=== PATIENT | male | born 1940 | race Caucasian/White ===

== ENCOUNTER → 2016-11-18 | Outpatient (CLI) | payer MEDICARE, BC ==
--- NOTE | 2016-11-18 11:51 | PN ---
DATE OF SERVICE: 11/18/2016 A 76-year-old gentleman who has [facility] for [facility] of obstructive sleep apnea-hypopnea syndrome. Recently patient had sleep studies which showed that patient has obstructive sleep apnea-hypopnea syndrome and then he has had titration which showed that CPAP was effective for the pressure 14 cm of water. Patient received his new CPAP unit. He brought his unit with him for the appointment. I checked the unit usage, he is 30/30 nights for more than 4 hours which showed 100% compliance with treatment. Average usage is 8.8 hours. Average apnea-hypopnea index for last one month 1.7. Patient increased his weight on about 10 pounds since titration in July of 2016. Patient does not have any problem with the machine, sleeps well. No snoring with the machine. Strong Sleepiness Scale today is 9. MEDICATIONS: Losartan, hydrochlorothiazide, allopurinol, stool softeners, Timoptic eye drops. During physical exam, patient in no distress. BP 117/61, HR 70, RR 16. Weight 322. Temp 98.2. Oxygen saturation at room air 94%. Oropharynx low position of soft palate. ABDOMEN: Obese. HEART: S1, S2, irregular slightly systolic murmur on aorta. NECK: Supple. No JVD, Thyroid is not palpable. LUNGS: Clear to percussion and to auscultation. Good air exchange. No wheezing or rhonchi. ASSIGNMENT AGENT: Awake, alert, and oriented x3. Cranial nerves 2 to 7 intact. There is no fasciculation or atrophy noted. No focal deficits observed. IMPRESSION: 1. Obstructive sleep apnea-hypopnea syndrome on control with CPAP at 14 cm of water. Patient demonstrated 100% compliance with treatment benefiting from treatment. 2. Obesity. 3. Hypertension. 4. Gout. 5. Glaucoma. 6. Status post bilateral knee replacement. PLAN: 1. Patient will continue treatment with CPAP every night for the whole night. 2. Losing weight. 3. Sleep hygiene with regular time in bed for at least 8 hours. 4. No driving if feeling any sleepiness. 5. Prescription for all necessary CPAP supplies. 6. Followup visit in one year. Sincerely, Delmar Christianson MD, PhD, FAASM Diplomat of [place] [employer], Sleep Medicine Board by [place] [employer] [place] [employer] Mechanical Maintenance of [facility] [place]
== END | disposition home or self-care (01) ==
LOC: SLEEP 09:48
PROVIDERS: ATTEND Internal Medicine
DX: G47.33 Obstructive sleep apnea (adult) (pediatric) (principal); E66.9 Obesity, unspecified; I10 Essential (primary) hypertension; M10.9 Gout, unspecified; H40.9 Unspecified glaucoma; Z96.653 Presence of artificial knee joint, bilateral; Z79.899 Other long term (current) drug therapy

== ENCOUNTER → 2017-11-07 | Outpatient (CLI) | payer MEDICARE, BC ==
--- NOTE | 2017-11-07 15:46 | XR ---
EXAMINATION TYPE: XR foot complete RT DATE OF EXAM: 11/07/2017 CLINICAL HISTORY: Right foot ulceration and pain. TECHNIQUE: Frontal, lateral, and oblique images of the right foot are obtained. COMPARISON: None FINDINGS: Soft tissue ulceration seen at the plantar aspect of the first digit distally with soft ti ssue swelling of the plantar aspect of the midfoot and forefoot and to a lesser degree of the hindfoo t. No focal ulceration or periosteal reaction is identified. Healing fracture deformity is seen of th e middle phalanx of the second digit, obliquely oriented and extending into the distal interphalangea l joint with some callus formation on the oblique image. Small Achilles and plantar enthesophytes are seen on the oblique and lateral images respectively. No evidence of dislocation is identified. IMPRESSION: 1. Soft tissue ulceration of the plantar aspect of the great toe with no radiographic sequela of oste omyelitis. Soft tissue swelling is seen of the forefoot and midfoot and to a lesser degree of the hin dfoot. 2. Healing fracture deformity of the middle phalanx of the second digit with intra-articular extensio n.
== END | disposition home or self-care (01) ==
LOC: RADXRMAIN 15:00
PROVIDERS: ATTEND Podiatrist Foot Surgery
DX: M79.89 Other specified soft tissue disorders (principal); S92.521D Displaced fracture of middle phalanx of right lesser toe(s), subsequent encounter for fracture with routine healing

== ENCOUNTER 2018-02-21 03:12 | Emergency (ER) | payer MEDICARE ==
--- NOTE | 2018-02-21 03:37 | ED ---
General Adult HPI - General Chief complaint: Shortness of Breath Stated complaint: Possible Heatstroke Time Seen by Provider: 02/21/18 03:15 Source: patient, RN notes reviewed Mode of arrival: wheelchair Limitations: no limitations - History of Present Illness Initial comments: This is a 77-year-old male who is morbidly obese and has a history of high blood pressure. Patient presents today because since this morning he has been short of breath and sweating. Patient denies any chest pain or palpitation. Patient denies any fever. Patient states he has been coughing quite a bit lately however. Patient denies abdominal pain patient denies nausea vomiting or diarrhea. Patient denies any lightheadedness or dizziness. Patient does complain of generalized weakness but no focal weakness or deficit. Patient denies any headache. - Related Data Home Medications Medication Instructions Recorded Confirmed Allopurinol 100 mg PO BID 03/15/14 01/19/16 Docusate Sodium [Stool Softener] 100 mg PO BID 03/15/14 01/19/16 Losartan/Hydrochlorothiazide 1 tab PO QAM 03/15/14 01/19/16 [Losartan-Hctz 100-25 mg Tab] [place]-3 Acid Ethyl Esters [Lovaza] 1 gm PO DAILY 03/15/14 01/19/16 Timolol 0.5% Ophth Soln [Timoptic 1 drop BOTH EYES HS 03/15/14 01/19/16 0.5% Ophth Soln] diphenhydrAMINE [Benadryl] 25 mg PO DAILY PRN 08/28/15 01/19/16 Cholecalciferol [Vitamin D3] 2,000 unit PO DAILY 01/13/16 01/19/16 Ezetimibe [Zetia] 10 mg PO HS 01/13/16 01/19/16 Previous Rx's Medication Instructions Recorded Aspirin 325 mg PO BID #60 tab 01/21/16 Celecoxib [CeleBREX] 200 mg PO BID #30 capsule 01/21/16 Docusate [Colace] 100 mg PO DAILY #30 capsule 01/21/16 Famotidine [Pepcid] 20 mg PO DAILY #30 tablet 01/21/16 traMADol HCl [Ultram] 50 mg PO Q6H PRN #60 tab 01/21/16 Allergies Allergy/AdvReac Type Severity Reaction Status Date / Time ciprofloxacin [From Cipro] Allergy Unknown Verified 02/21/18 03:18 ciprofloxacin HCl Allergy Unknown Verified 02/21/18 03:18 [From Cipro] Tetanus Vaccines and Toxoid Allergy Swelling Verified 02/21/18 03:18 [Tetanus Vaccines & Toxoid] warfarin sodium Allergy Swelling Verified 02/21/18 03:18 [From Coumadin] Review of Systems ROS Statement: Those systems with pertinent positive or pertinent negative responses have been documented in the HPI. ROS Other: All systems not noted in ROS Statement are negative. Past Medical History Past Medical History: Asthma, Cancer, Eye Disorder, Hyperlipidemia, Hypertension , Sleep Apnea/CPAP/BIPAP Additional Past Medical History / Comment(s): TINNITUS,GLAUCOMA, HX PROSTATE CA 1996 & 2012 RADIATION [place],USES BIPAP, BLOOD CLOT LT KNEE AFTER HIP SURGERY, GULLIAN BARRE SYNDROME 1996, gout-NONE RECENTLLY History of Any Multi-Drug Resistant Organisms: None Reported Past Surgical History: Adenoidectomy, Back Surgery, Hernia Repair, Joint Replacement, Prostate Surgery, Tonsillectomy Additional Past Surgical History / Comment(s): LEFT HIP REPLACEMENT, BACK FUSION , PROSTATE, RECTAL FISTULA REPAIR X 2,UMBILICAL HERNIA REPAIR,LT KNEE SCOPE, 09-08 TOTAL LT KNEE REPLACEMENT, 01-19-16 TOTAL RT KNEE Past Anesthesia/Blood Transfusion Reactions: No Reported Reaction, Motion Sickness Additional Past Anesthesia/Blood Transfusion Reaction / Comment(s): Anabaptist, CLAUSTERPHOBIA, MOTION SICKESS IF LAYING FLAT ESPECIALLY IF RIDING IN AN AMBULANCE Past Psychological History: No Psychological Hx Reported Smoking Status: Former smoker Past Alcohol Use History: Occasional Past Drug Use History: None Reported - Past Family History Mother Family Medical History: Cancer (Mother at the age of 82 from pleural cancer ?Mesothelioma.) Father Family Medical History: Cancer (Father at the age of 83 from CVA,CA and had a PPM and history of prostate cancer), CVA/TIA, Myocardial Infarction (CA) Additional Family Medical History / Comment(s): HEART PROBLEMS-PACEMAKER Brother(s) Family Medical History: Coronary Artery Disease (CAD) (Patient has one brother with CAD .) Additional Family Medical History / Comment(s): HEART PROBLEMS Sister(s) Family Medical History: Cancer (patient has 2 sisters one with throat cancer and the other one with ovarian cancer.) Son(s) Family Medical History: Coronary Artery Disease (CAD) (Patient has 2 sons one of them with CAD.) General Exam - General Exam Comments Initial Comments: GENERAL: Patient is well-developed and well-nourished. Patient is nontoxic and well- hydrated and is in mild distress. ENT: Neck is soft and supple. No significant lymphadenopathy is noted. Oropharynx is clear. Moist mucous membranes. Neck has full range of motion without eliciting any pain. EYES: The sclera were anicteric and conjunctiva were pink and moist. Extraocular movements were intact and pupils were equal round and reactive to light. Eyelids were unremarkable. PULMONARY: Unlabored respirations. Good breath sounds bilaterally. No audible rales rhonchi or wheezing was noted. CARDIOVASCULAR: There is a regular rate and rhythm without any murmurs gallops or rubs. ABDOMEN: Soft and nontender with normal bowel sounds. No palpable organomegaly was noted. There is no palpable pulsatile mass. SKIN: Skin is clear with no lesions or rashes and otherwise unremarkable. NEUROLOGIC: Patient is alert and oriented x3. Cranial nerves II through XII are grossly intact. Motor and sensory are also intact. Normal speech, volume and content. Symmetrical smile. MUSCULOSKELETAL: Normal extremities with adequate strength and full range of motion. LYMPHATICS: No significant lymphadenopathy is noted PSYCHIATRIC: Normal psychiatric evaluation. Limitations: no limitations Course Vital Signs 02/21/18 02/21/18 03:15 05:38 Temperature 96.9 F L 97.1 F L Pulse Rate 74 68 Respiratory 19 18 Rate Blood Pressure 154/82 134/64 O2 Sat by Pulse 95 97 Oximetry Medical Decision Making - Medical Decision Making EKG shows normal sinus rhythm at 73 bpm NE interval is 188 QRS is 98 QT interval 440 QTC is 484. Patient's EKG shows some T-wave inversions in leads V3 and V4. Computed tomography scan showed bilateral pulmonary embolisms with some right heart strain. I started the patient on high-dose heparin. Spoke with Dr. Livingston he agreed to admit the patient admitted the patient I consult the pulmonary. - Lab Data Result diagrams: 02/21/18 04:15 02/21/18 04:15 Lab Results 02/21/18 02/21/18 02/21/18 Range/Units 04:15 04:15 04:15 WBC 8.2 (3.8-10.6) k/uL RBC 4.87 (4.30-5.90) m/uL Hgb 15.1 (13.0-17.5) gm/dL Hct 46.3 (39.0-53.0) % MCV 95.0 (80.0-100.0) fL MCH 31.1 (25.0-35.0) pg MCHC 32.7 (31.0-37.0) g/dL RDW 13.3 (11.5-15.5) % Plt Count 210 (150-450) k/uL Neutrophils % 81 % Lymphocytes % 11 % Monocytes % 5 % Eosinophils % 1 % Basophils % 0 % Neutrophils # 6.7 (1.3-7.7) k/uL Lymphocytes # 0.9 L (1.0-4.8) k/uL Monocytes # 0.4 (0-1.0) k/uL Eosinophils # 0.1 (0-0.7) k/uL Basophils # 0.0 (0-0.2) k/uL PT (9.0-12.0) sec INR (<1.2) APTT (22.0-30.0) sec D-Dimer (<0.60) mg/L FEU Sodium 142 (137-145) mmol/L Potassium 4.5 (3.5-5.1) mmol/L Chloride 108 H (98-107) mmol/L Carbon Dioxide 24 (22-30) mmol/L Anion Gap 10 mmol/L BUN 30 H (9-20) mg/dL Creatinine 1.40 H (0.66-1.25) mg/dL Est GFR (CKD-EPI)AfAm 57 (>60 ml/min/1.73 sqM) Est GFR (CKD-EPI)NonAf 49 (>60 ml/min/1.73 sqM) Glucose 140 H (74-99) mg/dL Calcium 9.6 (8.4-10.2) mg/dL Magnesium 1.8 (1.6-2.3) mg/dL Total Bilirubin 0.7 (0.2-1.3) mg/dL AST 29 (17-59) U/L ALT 30 (21-72) U/L Alkaline Phosphatase 37 L (38-126) U/L Total Creatine Kinase 91 (55-170) U/L CK-MB (CK-2) 3.6 H* (0.0-2.4) ng/mL CK-MB (CK-2) Rel Index 4.0 Troponin I 0.279 H* (0.000-0.034) ng/mL NT-Pro-B Natriuret Pep pg/mL Total Protein 6.4 (6.3-8.2) g/dL Albumin 3.9 (3.5-5.0) g/dL 02/21/18 02/21/18 Range/Units 04:15 04:15 WBC (3.8-10.6) k/uL RBC (4.30-5.90) m/uL Hgb (13.0-17.5) gm/dL Hct (39.0-53.0) % MCV (80.0-100.0) fL MCH (25.0-35.0) pg MCHC (31.0-37.0) g/dL RDW (11.5-15.5) % Plt Count (150-450) k/uL Neutrophils % % Lymphocytes % % Monocytes % % Eosinophils % % Basophils % % Neutrophils # (1.3-7.7) k/uL Lymphocytes # (1.0-4.8) k/uL Monocytes # (0-1.0) k/uL Eosinophils # (0-0.7) k/uL Basophils # (0-0.2) k/uL PT 11.0 (9.0-12.0) sec INR 1.1 (<1.2) APTT 22.4 (22.0-30.0) sec D-Dimer 4.38 H (<0.60) mg/L FEU Sodium (137-145) mmol/L Potassium (3.5-5.1) mmol/L Chloride (98-107) mmol/L Carbon Dioxide (22-30) mmol/L Anion Gap mmol/L BUN (9-20) mg/dL Creatinine (0.66-1.25) mg/dL Est GFR (CKD-EPI)AfAm (>60 ml/min/1.73 sqM) Est GFR (CKD-EPI)NonAf (>60 ml/min/1.73 sqM) Glucose (74-99) mg/dL Calcium (8.4-10.2) mg/dL Magnesium (1.6-2.3) mg/dL Total Bilirubin (0.2-1.3) mg/dL AST (17-59) U/L ALT (21-72) U/L Alkaline Phosphatase (38-126) U/L Total Creatine Kinase (55-170) U/L CK-MB (CK-2) (0.0-2.4) ng/mL CK-MB (CK-2) Rel Index Troponin I (0.000-0.034) ng/mL NT-Pro-B Natriuret Pep 3120 pg/mL Total Protein (6.3-8.2) g/dL Albumin (3.5-5.0) g/dL Disposition Clinical Impression: Pulmonary embolism Disposition: ADMITTED IP TO THIS HOSP Referrals: Codey Simons DO [Primary Care Provider] - 1-2 days Time of Disposition: 06:02
[2018-02-21 04:29] LABS: Basophils % (A) 0 %; Eosinophils # (A) 0.1 k/uL (0-0.7); Eosinophils % (A) 1 %; HCT 46.3 % (39.0-53.0); HGB 15.1 gm/dL (13.0-17.5); Lymphocytes # (A) 0.9 k/uL (1.0-4.8); Lymphocytes % (A) 11 %; MCH 31.1 pg (25.0-35.0); MCHC 32.7 g/dL (31.0-37.0); Mean Platelet Volume 7.1; Monocytes # (A) 0.4 k/uL (0-1.0); Monocytes % (A) 5 %; Neutrophils # (A) 6.7 k/uL (1.3-7.7); Neutrophils % (A) 81 %; Platelet Count 210 k/uL (150-450); RBC 4.87 m/uL (4.30-5.90); RDW 13.3 % (11.5-15.5); WBC 8.2 k/uL (3.8-10.6)
--- NOTE | 2018-02-21 04:38 | XR ---
EXAM: XR Chest, 2 Views CLINICAL HISTORY: difficulty breathing TECHNIQUE: Frontal and lateral views of the chest. COMPARISON: 04/05/2016 FINDINGS: Lungs: Minimal linear changes at the left base are presumed subsegmental atelectasis or scarring. The pulmonary vasculature is felt to be within normal limits. Pleural space: No pleural effusion. No pneumothorax. Heart: Unremarkable. No cardiomegaly. Mediastinum: Unremarkable. Bones/joints: Stable degenerative changes of the thoracic spine. Vasculature: There is calcification and unfolding of the thoracic aorta, stable. IMPRESSION: Presumed linear left basilar atelectasis or scarring. No segmental airspace disease or acute cardiopulmonary process identified.
[2018-02-21 04:50] LABS: Albumin 3.9 g/dL (3.5-5.0); Calcium 9.6 mg/dL (8.4-10.2); INR 1.1 (<1.2); Magnesium 1.8 mg/dL (1.6-2.3); Partial Thromboplastin Time 22.4 sec (22.0-30.0); Potassium 4.5 mmol/L (3.5-5.1); Total Bilirubin 0.7 mg/dL (0.2-1.3); Total Protein 6.4 g/dL (6.3-8.2)
[2018-02-21 04:55] LABS: D-Dimer 4.38 mg/L FEU (<0.60)
[2018-02-21 05:18] LABS: Creatine Kinase MB 3.6 ng/mL (0.0-2.4); Troponin I 0.279 ng/mL (0.000-0.034)
[2018-02-21 05:39] VITALS: RESP 18; TEMP 97.1
--- NOTE | 2018-02-21 05:50 | CT ---
EXAM: CT Angiography Chest With Intravenous Contrast CLINICAL HISTORY: Pain TECHNIQUE: Axial computed tomographic angiography images of the chest with intravenous contrast using pulmonary embolism protocol. CTDI is 35.55 mGy and DLP is 1492 mGy-cm. This CT exam was performed using one or more of the following dose reduction techniques: automated exposure control, adjustment of the mA and/or kV according to patient size, and/or use of iterative reconstruction technique. MIP reconstructed images were created and reviewed. COMPARISON: 06/04/2016 FINDINGS: Pulmonary arteries: There are filling defects noted in the distal main right and left pulmonary arteries with extension to involve the proximal subsegmental branches. There is complete filling defect involving the right proximal posterior basal segments there is filling defect in the proximal right upper lobe. Filling defects are noted involving the proximal left upper lobe and left posterior basal segments. Aorta: No acute findings. No thoracic aortic aneurysm. Lungs: Minimal linear and curvilinear changes are noted at the lung bases, somewhat improved from previous exam. Minimal subsegmental changes noted involving the lingular segments. Pleural space: Unremarkable. No significant effusion. No pneumothorax. Heart: The right ventricle is enlarged with the base of the right ventricle measuring 7 cm in the base of the left ventricle measuring 4.8 cm. Bones/joints: No acute fracture. No dislocation. Soft tissues: Intramuscular lipoma noted along the deep lateral margin of the scapula, stable.. Lymph nodes: Unremarkable. No enlarged lymph nodes. Liver: Minimal reflux of contrast into the intrahepatic IVC is noted suggesting right heart dysfunction. IMPRESSION: Findings consistent with bilateral pulmonary embolism affecting all major segments. Dilatation of the right ventricle in relation to the left suggests right heart dysfunction. Please correlate clinically. Critical Value Communications 02/21/18 05:57 Call Doctor Regarding Pulmonary Embolism, called Dr. Lomax on 02/21 05:54 (-04:00)
[2018-02-21] MEDS ORDERED: HEPARIN SODIUM,PORCINE 10,000 UNIT/ML 1 ML VIAL IV ONE (05:57)
[2018-02-21] MEDS ORDERED: HEPARIN SOD,PORK IN 0.45% NACL 25,000 UNIT in 0.45% NACL 1 500ML.BAG IV SCH (06:00)
[2018-02-21] MEDS ORDERED: SODIUM CHLORIDE 0.9% 1,000 ML IV ONE (06:02)
[2018-02-21 06:44] VITALS: BP 135/75; PULSE 72
== END 2018-02-21 07:10 | disposition other institution (70) ==
LOC: EC 03:12 → UNDOADMIN 06:02 → 6SEL 06:02 → EC 07:10
DX: I26.99 Other pulmonary embolism without acute cor pulmonale (principal); E78.5 Hyperlipidemia, unspecified; I10 Essential (primary) hypertension; M10.9 Gout, unspecified; G47.30 Sleep apnea, unspecified; Z99.89 Dependence on other enabling machines and devices; Z87.891 Personal history of nicotine dependence; Z85.46 Personal history of malignant neoplasm of prostate; Z96.642 Presence of left artificial hip joint; Z96.652 Presence of left artificial knee joint; Z98.1 Arthrodesis status; Z98.890 Other specified postprocedural states; Z79.899 Other long term (current) drug therapy; Z88.1 Allergy status to other antibiotic agents; Z88.8 Allergy status to other drugs, medicaments and biological substances; Z88.7 Allergy status to serum and vaccine
CPT/HCPCS: 36415; 93005; 85379; 83880; 80053; 82550; 82553; 83735; 84484; 85025; 85610; 85730; 87040; 71046; 71275; 99285; 96365; 96376; J1644 ×2; Q9967

== ENCOUNTER 2018-05-03 07:04 | Day surgery (SDC) | payer MEDICARE ==
[2018-04-27 13:16] VITALS: BMI 43.7
[~2018-05-03 07:04] MED LIST: HYDROmorphone 0.5 MG/0.5 ML SYRINGE IVP PRN; LACTATED RINGERS 1,000 ML IV SCH; LIDOCAINE 1% 20 ML VIAL (10MG/ML) FOR IV START INTRADERMA PRN; Pre Op ABX Message 1 EACH MISC MISCELLANE ONE; TETRACAINE 0.5% OPHTH (PF) DROPS 4 ML BTL OP ONE; TIMOLOL 0.5% OPHTH DROPS 5 ML BTL OP ONE
[2018-05-03 07:40] VITALS: TEMP 97.6
[2018-05-03] MEDS: CYCLOPENTOLATE 1% OPHTH SOLN 2 ML BTL OP ONE ×3 (07:47→08:09)
[2018-05-03] MEDS: PHENYLEPHRINE 2.5% OPHTH DRP 2ML OP NR ×3 (07:55→08:12)
[2018-05-03] MEDS ORDERED: MIDAZOLAM 2 MG/2 ML VIAL ONE (08:43)
[2018-05-03] MEDS ORDERED: fentaNYL (PF) 50 MCG/ML 2 ML AMP ONE (08:43)
[2018-05-03] MEDS ORDERED: BALANCED SALT IRRIG SOLN COMB2 15 ML IRRIG.SOLN IRRIGATION ONE (08:48)
[2018-05-03] MEDS ORDERED: LIDOCAINE 1% (PF) 10MG/ML VIAL SQ ONE (08:49)
[2018-05-03] MEDS ORDERED: DUOVISC KIT (GREEN BOX) INTRAOCULA ONE (08:49)
[2018-05-03] MEDS ORDERED: EPINEPHrine (PF) 0.3 ML in BALANCED SALT IRRIG SOLN COMB2 500 ML IRRIGATION ONE (08:49)
[2018-05-03] MEDS ORDERED: CHONDROITIN-SOD HYALURONATE 1 EACH SYRINGE (0.75 ML) INTRAOCULA ONE (09:02)
--- NOTE | 2018-05-03 09:20 | P.OP ---
Date of Procedure: 05/03/18 Preoperative Diagnosis: NS CS & POAG moderate Postoperative Diagnosis: same Procedure(s) Performed: PIOL & iSTent Implants: PCB00 20.00 & iStent [id number] Anesthesia: MAC Surgeon: Danny Jacobson Estimated Blood Loss (ml): 2 Pathology: none sent Condition: stable Disposition: same day Indications for Procedure: blurry vision & POAG Operative Findings: No complications
[2018-05-03 10:01] VITALS: BP 129/79; PULSE 65; RESP 18
--- NOTE | 2018-05-03 18:48 | OP ---
OPERATIVE REPORT DATE OF SURGERY: May 03, 2018. PROCEDURE PERFORMED: Phacoemulsification of cataract and intraocular lens implant of the right eye with an eye stent implantation, right eye. 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 SURGEON: Dr. Danny Jacobson. ANESTHESIA: Topical. ESTIMATED BLOOD LOSS: Less than 5 mL. SPECIMEN: Taken none. NARRATIVE: After obtaining the appropriate consent, the patient was placed on cardiac monitoring prepped and draped in the usual sterile manner. He was approached from his right temporal side and at the 11 o'clock position an MVR blade was used to create a paracentesis port through this opening 1% Xylocaine MPF 50 50 mix of balanced salt solution was injected into the anterior chamber. This was followed by stabilization of the anterior chamber with Viscoat. Additionally, a small amount of that viscoelastic was placed on the patient's cornea. At the 9 o'clock position, a 2.5 mm keratome was used to create a self-sealing corneal flap incision in a Langerman's fashion. The patient was then asked to rotate his head to the left approximately 45 degrees and maintain his gaze in that general direction and a gonio prism was placed on the patient's eye. Once the trabecular meshwork was identified, a Glaukos eye stent model DTS 100 mL was passed across the anterior chamber of the eye and with implantation of the stenting device in the nasal trabecular meshwork. A small amount of blood was identified at the time of placement as expected. The patient was then returned to the normal supine position and a cystotome was introduced to begin a continuous tear capsulorrhexis which was completed using the Utrata forceps. Hydrodissection and hydrodelineation of the lens was accomplished with balanced salt solution. Phacoemulsification of the lens utilizing phaco chop was accomplished in 14.16 seconds at 12% power. Additional Xylocaine MPF was instilled into the anterior chamber. This was followed by removal of the remaining cortex under irrigation aspiration as well as careful polishing of the posterior capsule in capsule vacuum mode. Provisc was then used to stabilize the capsular bag and an DEJUAN PCB 20 diopter posterior chamber intraocular lens was then implanted into the capsular bag without difficulty. The remaining viscoelastic was then removed from in and around the intra-ocular lens as well as the anterior chamber. The eye was brought to normal intraocular pressure through the paracentesis port with confirmation of a watertight integrity. He then received 2 drops of 0.5% timolol followed by 2 drops of moxifloxacin, was then lightly patched and shielded in the usual manner. There were no complications of the procedure. He tolerated the procedure well, was returned to outpatient recovery in good condition. MMODL / IJN: [id number] /
== END 2018-05-03 10:00 | disposition home or self-care (01) ==
LOC: OR 07:04
PROVIDERS: ATTEND Ophthalmology
DX: H25.093 Other age-related incipient cataract, bilateral (principal); H40.1132 Primary open-angle glaucoma, bilateral, moderate stage; H25.012 Cortical age-related cataract, left eye; H25.12 Age-related nuclear cataract, left eye; H21.89 Other specified disorders of iris and ciliary body; H47.093 Other disorders of optic nerve, not elsewhere classified, bilateral; H43.313 Vitreous membranes and strands, bilateral; H52.13 Myopia, bilateral; H52.4 Presbyopia; H10.45 Other chronic allergic conjunctivitis; H00.019 Hordeolum externum unspecified eye, unspecified eyelid; I10 Essential (primary) hypertension; M10.9 Gout, unspecified; Z86.711 Personal history of pulmonary embolism; M19.90 Unspecified osteoarthritis, unspecified site; G47.30 Sleep apnea, unspecified; Z87.891 Personal history of nicotine dependence; Z88.1 Allergy status to other antibiotic agents; Z88.8 Allergy status to other drugs, medicaments and biological substances; Z91.048 Other nonmedicinal substance allergy status; Z79.01 Long term (current) use of anticoagulants; Z79.82 Long term (current) use of aspirin; Z79.899 Other long term (current) drug therapy
CPT/HCPCS: 66984; 66183; C1780; C1783; J2250; J0171; J3010; J2001

== ENCOUNTER 2018-05-17 07:02 | Day surgery (SDC) | payer MEDICARE ==
[2018-05-12 11:23] VITALS: BMI 43.7
[~2018-05-17 07:02] MED LIST changes: -HYDROmorphone 0.5 MG/0.5 ML SYRINGE IVP PRN; -LIDOCAINE 1% 20 ML VIAL (10MG/ML) FOR IV START INTRADERMA PRN
[2018-05-17] MEDS: CYCLOPENTOLATE 1% OPHTH SOLN 2 ML BTL OP ONE ×3 (08:07→08:24)
[2018-05-17 08:09] VITALS: TEMP 97
[2018-05-17] MEDS: PHENYLEPHRINE 2.5% OPHTH DRP 2ML OP NR ×3 (08:10→08:28)
[2018-05-17] MEDS ORDERED: LIDOCAINE 1% 20 ML VIAL (10MG/ML) FOR IV START INTRADERMA ONE (08:14)
[2018-05-17] MEDS ORDERED: LIDOCAINE 1% (PF) 10MG/ML VIAL SQ ONE (09:13)
[2018-05-17] MEDS ORDERED: DUOVISC KIT (GREEN BOX) INTRAOCULA ONE (09:13)
[2018-05-17] MEDS ORDERED: BALANCED SALT IRRIG SOLN COMB2 15 ML IRRIG.SOLN IRRIGATION ONE (09:13)
[2018-05-17] MEDS ORDERED: MIDAZOLAM 2 MG/2 ML VIAL ONE (09:14)
[2018-05-17] MEDS ORDERED: EPINEPHrine (PF) 0.3 ML in BALANCED SALT IRRIG SOLN COMB2 500 ML IRRIGATION ONE (09:25)
--- NOTE | 2018-05-17 09:40 | P.OP ---
Date of Procedure: 05/17/18 Preoperative Diagnosis: NS & CS & POAG moderate Postoperative Diagnosis: same Procedure(s) Performed: PIOL & iStent left eye Implants: PCB00 19.50 & GTS 100L Anesthesia: MAC Surgeon: Danny Jacobson Estimated Blood Loss (ml): 0 Pathology: none sent Condition: stable Disposition: same day Indications for Procedure: blurry vision & glaucoma Operative Findings: No complications
[2018-05-17 10:16] VITALS: BP 115/77; PULSE 61; RESP 18
--- NOTE | 2018-05-17 20:37 | OP ---
OPERATIVE REPORT DATE OF SURGERY: 05/17/2018 PROCEDURE: Phacoemulsification of cataract and intraocular lens implant of the left eye with an eye stent implantation of the left eye. PREOPERATIVE DIAGNOSIS: Nuclear sclerosis, cortical sclerosis and primary open-angle glaucoma, moderate stage. POSTOPERATIVE DIAGNOSIS: Nuclear sclerosis, cortical sclerosis and primary open-angle glaucoma, moderate stage. SURGEON: Dr. Danny Jacobson. ANESTHESIA: Topical. ESTIMATED BLOOD LOSS: None. SPECIMEN TAKEN: None. NARRATIVE: After obtaining the appropriate consent, the patient was brought to the operating room. There he was placed under cardiac monitoring, prepped and draped in the usual sterile manner. He was approached from his left temporal side, and at the 5 o'clock position an MVR blade was used to create a paracentesis port. Through this opening 1% Xylocaine MPF 50:50 mix of balanced salt solution was injected into the anterior chamber. This was followed by stabilization of the anterior chamber with Viscoat. At the 3 o'clock position a 2.5 mm keratome was used to create a self-sealing corneal flap incision in a Langerman's fashion. The patient was then asked to rotate his head approximately 45 degrees to his right and maintain his gaze in that general direction. A gonioprism was placed on the patient's cornea and the trabecular meshwork was easily identified. A GlaNifty After Fifty model GTS 100L iStent device was passed across the anterior chamber and placed within the trabecular meshwork without difficulty. He was then rotated back to the normal supine position and a cystotome was used to begin a continuous tear capsulorrhexis, which was completed using the Utrata forceps. Hydrodissection and hydrodelineation of the lens was accomplished with balanced salt solution. Phacoemulsification of the lens utilizing phaco chop was accomplished in 14.84 seconds at 14% power. Additional Xylocaine MPF was instilled into the anterior chamber. This was followed by removal of the remaining cortex under irrigation and aspiration along with careful polishing of the posterior capsule in the capsule vacuum mode. Provisc was then used to stabilize the capsular bag and an DEJUAN PCP 00 19.5 diopter posterior chamber intraocular lens was then inserted into the capsular bag without difficulty. The remaining viscoelastic was then removed from in and around the intraocular lens as well as the anterior chamber. The eye was then brought to normal intraocular pressure through the paracentesis port and the incisions were confirmed watertight. He then received 2 drops of 0.5% timolol followed by 2 drops of moxifloxacin, was then lightly patched and shielded in the usual manner. There were no complications from the procedure. He tolerated the procedure well and was returned to Outpatient Recovery in good condition. PATRICIA / LINWOOD: [id number] /
== END 2018-05-17 10:28 | disposition home or self-care (01) ==
LOC: OR 07:02
PROVIDERS: ATTEND Ophthalmology
DX: H25.12 Age-related nuclear cataract, left eye (principal); H21.89 Other specified disorders of iris and ciliary body; H40.1132 Primary open-angle glaucoma, bilateral, moderate stage; H47.093 Other disorders of optic nerve, not elsewhere classified, bilateral; H43.813 Vitreous degeneration, bilateral; H52.13 Myopia, bilateral; H00.019 Hordeolum externum unspecified eye, unspecified eyelid; H52.4 Presbyopia; H10.45 Other chronic allergic conjunctivitis; Z96.1 Presence of intraocular lens; Z88.1 Allergy status to other antibiotic agents; Z88.7 Allergy status to serum and vaccine; Z88.8 Allergy status to other drugs, medicaments and biological substances; Z79.01 Long term (current) use of anticoagulants; Z79.82 Long term (current) use of aspirin; Z79.899 Other long term (current) drug therapy; I11.9 Hypertensive heart disease without heart failure; Z87.891 Personal history of nicotine dependence; Z86.711 Personal history of pulmonary embolism; Z90.79 Acquired absence of other genital organ(s); G47.30 Sleep apnea, unspecified; Z99.89 Dependence on other enabling machines and devices; E07.9 Disorder of thyroid, unspecified; M10.9 Gout, unspecified
CPT/HCPCS: 66984; 66183; C1780; C1783; J2250; J0171; J2001

== ENCOUNTER → 2018-06-14 | Outpatient (CLI) | payer MEDICARE, OTHER ==
--- NOTE | 2018-06-14 09:03 | XR ---
EXAMINATION TYPE: XR chest 2V DATE OF EXAM: 06/14/2018 COMPARISON: 02/21/2018 HISTORY: Shortness of breath TECHNIQUE: Frontal and lateral views of the chest are obtained. FINDINGS: Scattered senescent parenchymal changes noted. Hyperinflation compatible with COPD. No evidence for infiltrate. No evidence for atelectasis. Heart size is stable. Mediastinal structures are stable and grossly unremarkable. No evidence for hilar prominence. Degenerative changes dorsal spine. IMPRESSION: 1. No evidence for acute pulmonary disease.
== END | disposition home or self-care (01) ==
LOC: RADXRMAIN 08:45
PROVIDERS: ATTEND Family Medicine
DX: J20.8 Acute bronchitis due to other specified organisms (principal)
CPT/HCPCS: 71046

== ENCOUNTER → 2020-02-06 | Outpatient (CLI) | payer MEDICARE, OTHER | END | disposition home or self-care (01) | LOC: LABPAT 12:46 | PROVIDERS: ATTEND Orthopaedic Surgery | DX: Z01.812 Encounter for preprocedural laboratory examination (principal) | CPT/HCPCS: 87070 ==

== ENCOUNTER 2020-02-11 09:39 | Day surgery (SDC) | payer MEDICARE, OTHER ==
[2020-02-05 14:57] VITALS: BMI 45.1
--- NOTE | 2020-02-10 09:25 | HP ---
HISTORY AND PHYSICAL Surgery is 02/11/2020 Paras Ren is a 79-year-old patient seen with symptomatic right hip osteoarthritis. We discussed options for treatment. He elected to proceed with right total hip arthroplasty. Consent regarding the procedure was obtained. Medical clearance was provided by Dr. Codey Simons. PAST MEDICAL HISTORY: Hypertension, gout, hypothyroidism, history of pulmonary embolism. PAST SURGICAL HISTORY: Left total hip arthroplasty, herniorrhaphy. MEDICATIONS: Losartan/hydrochlorothiazide, allopurinol, aspirin, levothyroxine, Xarelto. ALLERGIES: COUMADIN, TETANUS, AND CIPRO. SOCIAL HISTORY: Denies current tobacco use. PHYSICAL EXAMINATION: Evaluation of the right hip. He has very limited range of motion with severe pain. Impingement sign is positive. Distal neurovascular exam is intact. There is diffuse tenderness about the hip girdle. RADIOGRAPHS: Radiographs of the right hip reveal severe osteoarthritic changes. IMPRESSION: 1. Right hip osteoarthritis. 2. Hypertension. 3. Hyperlipidemia. 4. Hypothyroidism. PLAN: Direct anterior right total hip arthroplasty. MMODL / IJN: [id number] /
[~2020-02-11 09:39] MED LIST changes: +ACETAMINOPHEN TAB 500 MG TAB ONE; +ACETAMINOPHEN TAB 500 MG TAB PO ONE; +DEXAMETHASONE SOD PHOSPHATE 10 MG/ML 1 ML VIAL IV ONE; +GLYCOPYRROLATE 0.2 MG/ML 2 ML VIAL ONE; +HYDROcodone/APAP 5-325MG 1 EACH TAB PO PRN; +HYDROmorphone (PF) 1 MG/ML ONE; +HYDROmorphone 0.5 MG/0.5 ML SYRINGE IVP PRN; +LACTATED RINGERS 1,000 ML IV ONE; +LIDOCAINE 1% INJ 10MG/ML (20 ML MDV) ONE; +MELOXICAM 7.5 MG TAB PO ONE; +MIDAZOLAM 2 MG/2 ML VIAL ONE; +NALOXONE 0.4 MG/ML 1 ML VIAL IV PRN; +NEOSTIGMINE 1 MG/ML 10 ML VIAL ONE; +ONDANSETRON 4 MG/2 ML VIAL IVP ONE; +ONDANSETRON 4 MG/2 ML VIAL IVP PRN; +ONDANSETRON 4 MG/2 ML VIAL ONE; +PHENYLEPHRINE-0.9% NACL SYG 1 MG/10 ML SYRINGE ONE; +PROPOFOL 10 MG/ML 20 ML VIAL IV ONE; -Pre Op ABX Message 1 EACH MISC MISCELLANE ONE; +ROCURONIUM 10 MG/ML (5 ML VIAL) IV ONE; +ROPIVACAINE 246.25 MG, EPINEPHrine 0.5 MG, KETOROLAC 30 MG, cloNIDine HCL/PF 80 MCG, WA... MISCELLANE ONE; +SODIUM CHLORIDE 0.9% 100 ML BAG ONE; -TETRACAINE 0.5% OPHTH (PF) DROPS 4 ML BTL OP ONE; -TIMOLOL 0.5% OPHTH DROPS 5 ML BTL OP ONE; +TRANEXAMIC ACID 1,000 MG in SODIUM CHLORIDE 0.9% 100 ML IVPB ONE; +TRANEXAMIC ACID 1,000 MG/10 ML VIAL ONE; +ceFAZolin 3 GM in SODIUM CHLORIDE 0.9% 100 ML IVPB ONE; +fentaNYL (PF) 50 MCG/ML 2 ML AMP ONE; +traMADol 50 MG TAB PO PRN
--- NOTE | 2020-02-11 09:39 | P.OP ---
Date of Procedure: 02/11/20 Preoperative Diagnosis: Right hip osteoarthritis Postoperative Diagnosis: Right hip osteoarthritis Procedure(s) Performed: Direct anterior right total hip arthroplasty Implants: 1. Depuy Corail KA standard collar size 12 press-fit femoral stem 2. Depuy pinnacle 60 mm multi hole press-fit acetabular shell 3. Depuy pinnacle polyethylene acetabular liner neutral 36 mm ID 60 mm OD 4. Biolox delta ceramic femoral head +1.5 36 mm Anesthesia: ROMAA, local Surgeon: Abdulaziz Jeffrey Rail Tractor Operator #1: Ralph Abernathy Estimated Blood Loss (ml): 250 Pathology: other (Femoral head) Condition: stable Disposition: PACU Indications for Procedure: 79-year-old patient seen with symptomatic right hip osteoarthritis. After having treatment options discussed, he elected to proceed with total hip arthroplasty. Operative Findings: See description of procedure Description of Procedure: The patient was taken to the operative suite. Patient underwent a general anesthetic by the department of anesthesia. Patient was then transferred to the [place] table. Patient was given preoperative IV antibiotics and TXA. Both lower extremities were placed in standard leg spars. The hip was then prepped and draped in the normal sterile orthopedic fashion. A standard anterior incision was made beginning 3 cm lateral and 1 cm distal to the ASIS extending 10 cm. Dissection was then carried down through the subcutaneous soft tissues down to the fascia overlying the tensor fascia ric. An incision was now made through the fascia. Careful dissection was taken down exposing the tensor fascia ric muscle. A Cobra retractor was now placed along the medial femoral neck and a second one along the lateral femoral neck. The venous circumflex vessels were now identified, cauterized and clipped. We identified the anterior hip capsule. An incision was made through the hip capsule along the lateral border. I performed a partial anterior capsulectomy. Retractors were now placed around the femoral neck itself. A femoral neck cut was now made with a sagittal saw. It was completed with an osteotome at the lateral neck area. The femoral head was now removed without difficulty. The extremity was now rotated to 45 of external rotation. It was locked in position. Residual labrum was now debrided out. Serial reaming was performed of the acetabulum while Bryson TRAYLOR assisted holding an anterior retractor for exposure. Once we reached the appropriate size and a trial was position and fit nicely. The appropriate size was now chosen opened and made available. It was introduced into the acetabulum without difficulty. The C-arm/fluoroscopy was now brought into the operative field. We made sure we had a true AP pelvic view. We now under direct C- arm/fluoroscopy introduced into the acetabular component with appropriate version and inclination. I held the cup in appropriate position well Bryson TRAYLOR used a mallet to seat the acetabular component. I noted the component now to be well seated and stable. Acetabular cup introduce her was removed. The C-arm was pulled back. An appropriate liner was introduced and clicked into position. It was felt to be stable. At this point retractors were removed. The extremity was now placed into 125 external rotation with no traction. The leg was now dropped to the ground and adducted. Appropriate retractors were now positioned along the proximal femur. We also placed our femoral look into position. Additional capsular releasing was performed to gain access to the proximal femur. We now used a box osteotome. A canal finder was now utilized. Serial broaching was now performed with the assistance of Bryson TRAYLOR tapping the broaches down with a mallet while held the broach in appropriate rotation an d position. This was done until we reached the appropriate size with good overall rotational stability. Appropriate calcar planing was performed. A trial head/neck was placed into position. The hip was now reduced. The C- arm/fluoroscopy was brought back into the operative field. I obtained an AP pelvis to ascertain leg length which seem to be adequate. The C-arm/fluoroscopy was pulled back. Retractors were repositioned and the hip was dislocated. The leg was again taken down to the ground and adducted. Appropriate retractors were repositioned as well as the femoral hook. All trial components were removed. The femoral implant was opened along with the femoral head. The femoral implant was introduced on the appropriate handle into our pre-broached area. I held the component position well Bryson TRAYLOR used a mallet to seat the femoral component. The femoral component was now noted to be well seated and stable.. The femoral head was introduced with good positioning and fixation noted. Retractors were now removed. The hip was now reduced. There appeared be good positioning of the hip confirmed on intraoperative fluoroscopy. Spot films were obtained to document this. A second gram of TXA was given. The deep and superficial soft tissues were infiltrated with local analgesic. Bipolar cautery had been utilized intermittently through the procedure for hemostasis. The wound was irrigated copiously with pulse lavage mechanical irrigation. The fascia was repaired with Vicryl suture. The subcutaneous soft tissues were repaired in layers with Vicryl suture. The skin was approximated with pernio/Dermabond. Sterile dressings were applied. Patient was then awakened, transferred to a bed and taken to recovery in stable condition. Bryson TRAYLOR assisted with the complex procedure.
--- NOTE | 2020-02-11 09:39 | FL ---
Fluoroscopy History: RT HIP ant 13 secs fl time. 2 films submitted. Appropriate alignment noted.
--- NOTE | 2020-02-11 13:58 | P.CONS ---
History of Present Illness - Reason for Consult Consult date: 02/11/20 Medical management - History of Present Illness This is a 79-year-old male one of Dr. Simons with previous medical history significant for hypertension and hypertensive cardiovascular disease, hyperlipidemia, gout, obesity with obstructive sleep apnea, left lower extremity DVT following hip surgery on Xarelto, Guillain-Nora syndrome, prostate cancer and glaucoma. Patient has been brought in the hospital under the care of Dr. Jeffrey and is status post anterior approach right total hip arthroplasty. Patient is seen today in the bases to recovery area waiting for bed. Patient has not had a Deshpande catheter placed. Blood pressure has been stable. He denies any lightheadedness or dizziness. Pain is currently controlled. He denies any nausea or vomiting. Patient has not yet urinated. Patient has history of losing 16 pounds over the last couple weeks as he states he is not able to stand to make his meals. He does plan to return home at the time of discharge. Review of Systems Constitutional: No fever, no chills, no night sweats. Reports weight loss. No weakness, fatigue or lethargy. No daytime sleepiness. EENT: No headache. No blurred vision or double vision, no loss of vision. No loss of Hearing, no ringing in the ears, no dizziness. No nasal drainage or congestion. No epistaxis. No sore throat. Lungs: No shortness of breath, cough, no sputum production. No wheezing. Cardiovascular: No chest pain, no lower extremity edema. No palpitations. No paroxysmal nocturnal dyspnea. No orthopnea. No lightheadedness or dizziness. No syncopal episodes. Abdominal: No abdominal pain. No nausea, vomiting. No diarrhea. No constipation. No bloody or tarry stools.. No loss of appetite. Genitourinary: No dysuria, increased frequency, urgency. No urinary retention. Musculoskeletal: No myalgias. No muscle weakness, no gait dysfunction, no frequent falls. No back pain. No neck pain. Right hip discomfort. Integumentary: No wounds, no lesions. No rash or pruritus. No unusual bruising. No change in hair or nails. Neurologic: No aphasia. No facial droop. No change in mentation. No head injury. No headache. No paralysis. No paresthesia. Psychiatric: No depression. No anxiety. No mood swings. Endocrine: No abnormal blood sugars. No weight change. No excessive sweating or thirst. No cold intolerance. Physical Examination Gen: This is a morbidly obese 79-year-old male. He is lying on stretcher and appears to be comfortable and in no acute distress. No respiratory distress noted. HEENT: Head is atraumatic, normocephalic. Pupils equal, round. Sclerae is anicteric. NECK: Supple. No JVD. No lymphadenopathy. No thyromegaly. LUNGS: Clear to auscultation. No wheezes or rhonchi. No intercostal retractions. No chest wall tenderness. HEART: Regular rate and rhythm. No murmur. ABDOMEN: Soft. Bowel sounds are present. No masses. No tenderness. EXTREMITIES: No pedal edema. No calf tenderness. Dorsalis pedis +2 bilaterally. NEUROLOGICAL: Patient is awake, alert and oriented x3. Cranial nerves 2 through 12 are grossly intact. Assessment and Plan 1. Osteoarthritis status post anterior approach right total hip arthroplasty, postop day 0. Patient has had no postop complications. Continue current pain management, PT and OT per orthopedics. Continue incentive spirometry incidence of atelectasis and hospital-acquired pneumonia. Continue Xarelto. 2. Hypertension, hypertensive cardiovascular disease. Continue losartan hydrochlorothiazide 100/25 mg daily. 3. Obesity with obstructive sleep apnea. Continue BiPAP. 4. History of DVT. Continue Xarelto. 5. Chronic gout. Continue allopurinol 100 mg daily. 6. History of prostate cancer status post surgery and radiation, stable. Monitor for urinary retention. 7. History of glaucoma. Continue eyedrops. 8. History of Guillan-James, resolved. 9. Hyperlipidemia. Continue Zetia 10 mg daily. 10. DVT prophylaxis. 11. GI prophylaxis. 12. COVID-19 infection not present. Patient will be admitted to the hospital for a minimum of 2 night stay. Discharge plan: Return home most likely with homecare. Impression and plan of care have been directed as dictated by the signing physician. Cyn Jiménez nurse practitioner acting as scribe for signing physician. Past Medical History Past Medical History: Asthma, Cancer, Deep Vein Thrombosis (DVT), Eye Disorder, Hyperlipidemia, Hypertension, Sleep Apnea/CPAP/BIPAP Additional Past Medical History / Comment(s): TINNITUS,GLAUCOMA, HX PROSTATE CA 1996 & 2012 RADIATION [place],USES BIPAP, BLOOD CLOT LT KNEE AFTER HIP SURGERY,GULLIAN BARRE SYNDROME 1996, gout, LT CATARACT History of Any Multi-Drug Resistant Organisms: None Reported Past Surgical History: Adenoidectomy, Back Surgery, Hernia Repair, Joint Replacement, Prostate Surgery, Tonsillectomy Additional Past Surgical History / Comment(s): LEFT HIP REPLACEMENT, BACK FUSION, PROSTATE, RECTAL FISTULA REPAIR X 2,UMBILICAL HERNIA REPAIR,LT KNEE SCOPE, 09-08-15 TOTAL LT KNEE REPLACEMENT, 01-19-16 TOTAL RT KNEE, RT CATARACT REMOVED Past Anesthesia/Blood Transfusion Reactions: No Reported Reaction, Motion Sickness Additional Past Anesthesia/Blood Transfusion Reaction / Comm: Anglican, CLAUSTROPHOBIA, MOTION SICKESS IF LAYING FLAT ESPECIALLY IF RIDING IN AN AMBULANCE Past Psychological History: No Psychological Hx Reported Additional Past Alcohol Use History / Comment(s): QUIT SMOKING 1989, SMOKED APPROX 30 YEARS ON AND OFF ABOUT PACK PER WEEK. - Past Family History Mother Family Medical History: Cancer Additional Family Medical History / Comment(s): Mother at the age of 82 from pleural cancer ?Mesothelioma. Father Family Medical History: Cancer, CVA/TIA, Myocardial Infarction (ME) Additional Family Medical History / Comment(s): HEART PROBLEMS-PACEMAKER. Father at the age of 83 from CVA,ME and had a PPM and history of prostate cancer Brother(s) Family Medical History: Coronary Artery Disease (CAD) Additional Family Medical History / Comment(s): Patient has one brother with CAD. Sister(s) Family Medical History: Cancer Additional Family Medical History / Comment(s): Patient has 2 sisters one with throat cancer and the other one with ovarian cancer.throat cancer Son(s) Family Medical History: Coronary Artery Disease (CAD), Hypertension Additional Family Medical History / Comment(s): Patient has 2 sons one of them with CAD. Medications and Allergies Home Medications Medication Instructions Recorded Confirmed Type Allopurinol 100 mg PO DAILY 03/15/14 02/11/20 History Losartan/Hydrochlorothiazide 1 tab PO QAM 03/15/14 02/11/20 History [Losartan-Hctz 100-25 mg Tab] Colerain-3 Acid Ethyl Esters [Lovaza] 1 gm PO DAILY 03/15/14 02/11/20 History Fenofibrate [Lofibra] 160 mg PO HS 04/27/18 02/11/20 History Levothyroxine Sodium [Synthroid] 25 mcg PO HS 04/27/18 02/11/20 History Acetaminophen [Tylenol] 500 mg PO DAILY PRN 02/05/20 02/11/20 History Aspirin 325 mg PO DAILY 02/05/20 02/11/20 History Cetirizine HCl 10 mg PO DAILY 02/05/20 02/11/20 History Cyanocobalamin [Vitamin B-12] 500 mcg PO DAILY 02/05/20 02/11/20 History Ketorolac [Toradol] 10 mg PO TID PRN 02/05/20 02/11/20 History Rivaroxaban [Xarelto] 20 mg PO DAILY 02/05/20 02/11/20 History Allergies Allergy/AdvReac Type Severity Reaction Status Date / Time ciprofloxacin [From Cipro] Allergy Unknown Verified 02/11/20 06:24 ciprofloxacin HCl Allergy Unknown Verified 02/11/20 06:24 [From Cipro] Tetanus Vaccines and Toxoid Allergy Swelling Verified 02/11/20 06:24 [Tetanus Vaccines & Toxoid] warfarin sodium Allergy Swelling Verified 02/11/20 06:24 [From Coumadin] Physical Exam Vitals: Vital Signs Temp Pulse Resp BP Pulse Ox 02/11/20 13:01 71 16 129/64 100 02/11/20 12:30 72 16 127/67 100 02/11/20 12:00 63 16 122/66 98 02/11/20 11:30 68 16 126/73 100 02/11/20 11:15 68 16 130/74 99 02/11/20 11:01 67 16 115/65 99 02/11/20 10:45 62 16 116/58 99 02/11/20 10:30 69 16 127/59 98 02/11/20 10:15 71 16 123/59 97 02/11/20 10:10 114/61 02/11/20 10:02 66 16 87/46 94 L 02/11/20 09:48 96.9 F L 71 16 85/63 95 02/11/20 06:26 97.2 F L 73 16 144/68 98 Intake and Output 02/10/20 02/11/20 02/11/20 22:59 06:59 14:59 Intake Total 100 1100 Output Total 250 Balance 100 850 Intake: IV 100 1100 Output: Estimated Blood Loss 250 Other: Weight 135.2 kg
[2020-02-11] MEDS: ceFAZolin 3 GM in SODIUM CHLORIDE 0.9% 100 ML IVPB SCH ×2 (15:21→23:54)
[2020-02-11] MEDS: LACTATED RINGERS 1,000 ML IV SCH (15:22)
[2020-02-11] MEDS: SENNOSIDES-DOCUSATE SODIUM 1 EACH TAB PO SCH (21:36)
[2020-02-11] MEDS: FENOFIBRATE 160 MG TAB PO SCH (21:37)
[2020-02-11] MEDS: LEVOTHYROXINE 25 MCG TAB PO SCH (21:37)
[2020-02-12] MEDS: LACTATED RINGERS 1,000 ML IV SCH (07:24)
[2020-02-12 07:54] LABS: Basophils % (A) 0 %; Eosinophils % (A) 0 %; HCT 36.2 % (39.0-53.0); HGB 11.1 gm/dL (13.0-17.5); Hypochromasia Slight; Lymphocytes # (A) 0.7 k/uL (1.0-4.8); Lymphocytes % (A) 6 %; MCH 29.6 pg (25.0-35.0); MCHC 30.7 g/dL (31.0-37.0); MCV 96.5 fL (80.0-100.0); Mean Platelet Volume 7.5; Monocytes # (A) 0.7 k/uL (0-1.0); Monocytes % (A) 7 %; Neutrophils # (A) 8.8 k/uL (1.3-7.7); Neutrophils % (A) 85 %; Platelet Count 270 k/uL (150-450); RBC 3.75 m/uL (4.30-5.90); RDW 14.2 % (11.5-15.5); WBC 10.3 k/uL (3.8-10.6)
[2020-02-12] MEDS: LOSARTAN-HCTZ 50-12.5 MG 1 EACH TAB PO SCH (08:52)
[2020-02-12] MEDS: CYANOCOBALAMIN 500 MCG TAB PO SCH (08:52)
[2020-02-12] MEDS: allopurinoL 100 MG TAB PO SCH (08:52)
[2020-02-12] MEDS: LORATADINE 10 MG TAB PO SCH (08:52)
[2020-02-12] MEDS: MELOXICAM 7.5 MG TAB PO SCH (08:53)
[2020-02-12] MEDS ORDERED: NON FORMULARY DRUG (Omega-3 Acid Ethyl Esters [Lovaza] 1 GM) PO SCH (09:00)
[2020-02-12] MEDS ORDERED: ENOXAPARIN 40 MG/0.4 ML SYRINGE SQ SCH (09:00)
[2020-02-12] MEDS ORDERED: SCOPOLAMINE 1.5MG/72HR PATCH TRANSDERM STA (09:24)
[2020-02-12] MEDS ORDERED: ONDANSETRON 4 MG/2 ML VIAL IVP PRN (09:25)
--- NOTE | 2020-02-12 12:12 | P.PN ---
Subjective Progress Note Date: 02/12/20 - History of Present Illness This is a 79-year-old male one of Dr. Simons with previous medical history significant for hypertension and hypertensive cardiovascular disease, hyperlipidemia, gout, obesity with obstructive sleep apnea, left lower extremity DVT following hip surgery on Xarelto, Guillain-Beaver syndrome, prostate cancer and glaucoma. Patient has been brought in the hospital under the care of Dr. Jeffrey and is status post anterior approach right total hip arthroplasty. Patient is seen today in the bases to recovery area waiting for bed. Patient has not had a Deshpande catheter placed. Blood pressure has been stable. He denies any lightheadedness or dizziness. Pain is currently controlled. He denies any nausea or vomiting. Patient has not yet urinated. Patient has history of losing 16 pounds over the last couple weeks as he states he is not able to stand to make his meals. He does plan to return home at the time of discharge. 02/11: Patient states he has been up to the bathroom and doing well. He has developed nausea and vomiting which has not improved with Zofran. We are increasing frequency of Zofran and adding in scopolamine patch. He has been afebrile, heart rate 71, blood pressure 129/76, pulse ox 97%. Patient did wear CPAP during the night. Repeat CBC reveals hemoglobin of 11.1. Pain is controlled today. Anticipate possible discharge home later today if nausea and vomiting improves. Review of Systems Constitutional: No fever, no chills, no night sweats. Reports weight loss. No weakness, fatigue or lethargy. No daytime sleepiness. EENT: No headache. No blurred vision or double vision, no loss of vision. No loss of Hearing, no ringing in the ears, no dizziness. No nasal drainage or congestion. No epistaxis. No sore throat. Lungs: No shortness of breath, cough, no sputum production. No wheezing. Cardiovascular: No chest pain, no lower extremity edema. No palpitations. No paroxysmal nocturnal dyspnea. No orthopnea. No lightheadedness or dizziness. No syncopal episodes. Abdominal: No abdominal pain. Reports nausea, reports vomiting. No diarrhea. No constipation. No bloody or tarry stools. No loss of appetite. Genitourinary: No dysuria, increased frequency, urgency. No urinary retention. Musculoskeletal: No myalgias. No muscle weakness, no gait dysfunction, no frequent falls. No back pain. No neck pain. Right hip discomfort. Integumentary: No wounds, no lesions. No rash or pruritus. No unusual bruising. No change in hair or nails. Neurologic: No aphasia. No facial droop. No change in mentation. No head injury. No headache. No paralysis. No paresthesia. Psychiatric: No depression. No anxiety. No mood swings. Endocrine: No abnormal blood sugars. No weight change. No excessive sweating or thirst. No cold intolerance. Physical Examination Gen: This is a morbidly obese 79-year-old male. He is in bed and appears to be comfortable and in no acute distress. No respiratory distress noted. HEENT: Head is atraumatic, normocephalic. Pupils equal, round. Sclerae is anicteric. NECK: Supple. No JVD. No lymphadenopathy. No thyromegaly. LUNGS: Clear to auscultation. No wheezes or rhonchi. No intercostal retractions. No chest wall tenderness. HEART: Regular rate and rhythm. No murmur. ABDOMEN: Soft. Bowel sounds are present. No masses. No tenderness. EXTREMITIES: No pedal edema. No calf tenderness. Dorsalis pedis +2 bilaterally. Right hip dressing in place. No bleeding. No significant edema. No erythema. NEUROLOGICAL: Patient is awake, alert and oriented x3. Cranial nerves 2 through 12 are grossly intact. Assessment and Plan 1. Osteoarthritis status post anterior approach right total hip arthroplasty, postop day 0. Patient has had no postop complications. Continue current pain management, PT and OT per orthopedics. Continue incentive spirometry incidence of atelectasis and hospital-acquired pneumonia. Continue Xarelto. 2. Hypertension, hypertensive cardiovascular disease. Continue losartan hydrochlorothiazide 100/25 mg daily. 3. Obesity with obstructive sleep apnea. Continue BiPAP. 4. History of DVT. Continue Xarelto. 5. Chronic gout. Continue allopurinol 100 mg daily. 6. History of prostate cancer status post surgery and radiation, stable. Monitor for urinary retention. 7. History of glaucoma. Continue eyedrops. 8. History of Guillan-James, resolved. 9. Hyperlipidemia. Continue Zetia 10 mg daily. 10. Postop nausea and vomiting. Increased frequency of Zofran every 6 hours, and scopolamine patch. 11. DVT prophylaxis. Xarelto. 12. GI prophylaxis. Protonix 12. COVID-19 infection not present. Discharge plan: [facility]. Impression and plan of care have been directed as dictated by the signing physician. Cyn Jiménez nurse practitioner acting as scribe for signing physician. Objective - Vital Signs Vital signs: Vital Signs Temp 98.1 F 02/12/20 06:54 Pulse 71 02/12/20 06:54 Resp 18 02/12/20 06:54 BP 129/76 02/12/20 06:54 Pulse Ox 97 02/12/20 06:54 Intake & Output 02/11/20 02/12/20 02/12/20 18:59 06:59 18:59 Intake Total 1450 900 Output Total 250 550 Balance 1200 350 Weight 135.2 kg Intake: IV 1450 Intake, IV Titration 900 Amount Lactated Ringers 1,000 ml 800 @ 50 mls/hr IV .Q20H [facility] Rx#:[id number] ceFAZolin 3 gm In Sodium 100 Chloride 0.9% 100 ml @ 200 mls/hr IVPB Q8HR [facility] Rx#:[id number] Output: Urine 250 Emesis 300 Estimated Blood Loss 250 Other: Voiding Method Urinal # Voids 1 - Labs CBC & Chem 7: 02/12/20 07:10 Labs: Abnormal Lab Results - Last 24 Hours (Table) 02/12/20 Range/Units 07:10 RBC 3.75 L (4.30-5.90) m/uL Hgb 11.1 L (13.0-17.5) gm/dL Hct 36.2 L (39.0-53.0) % MCHC 30.7 L (31.0-37.0) g/dL Neutrophils # 8.8 H (1.3-7.7) k/uL Lymphocytes # 0.7 L (1.0-4.8) k/uL
[2020-02-12] MEDS: PANTOPRAZOLE 40 MG/10 ML VIAL IVP SCH (13:07)
--- NOTE | 2020-02-12 13:12 | P.PN ---
Subjective Progress Note Date: 02/12/20 Principal diagnosis: status post direct anterior right total hip arthroplasty Patient evaluated at bedside, resting comfortably. He has had a few different bouts of nausea and vomiting since surgery yesterday. Internal medicine has adjusted her medication slightly. He denies any chest pain or shortness of breath. Objective - Vital Signs Vital signs: Vital Signs Temp 98.1 F 02/12/20 06:54 Pulse 71 02/12/20 06:54 Resp 18 02/12/20 06:54 BP 129/76 02/12/20 06:54 Pulse Ox 97 02/12/20 06:54 Intake & Output 02/11/20 02/12/20 02/12/20 18:59 06:59 18:59 Intake Total 1450 900 Output Total 250 550 Balance 1200 350 Weight 135.2 kg Intake: IV 1450 Intake, IV Titration 900 Amount Lactated Ringers 1,000 ml 800 @ 50 mls/hr IV .Q20H [facility] Rx#:[id number] ceFAZolin 3 gm In Sodium 100 Chloride 0.9% 100 ml @ 200 mls/hr IVPB Q8HR [facility] Rx#:[id number] Output: Urine 250 Emesis 300 Estimated Blood Loss 250 Other: Voiding Method Urinal Urinal # Voids 1 1 # Emeses 2 - Exam Right lower extremity: Incision is clean, dry, and intact. The optifoam is in good condition. There is minimal soft tissue swelling and ecchymosis surrounding the medial and lateral aspects of the incision. Calf is soft, no tenderness with palpation. Plantar flexion, dorsiflexion, EHL, FHL are intact. Sensory exam to light touch throughout the extremity is intact, dorsal pedis pulses 2+. - Labs CBC & Chem 7: 02/12/20 07:10 Labs: Abnormal Lab Results - Last 24 Hours (Table) 02/12/20 Range/Units 07:10 RBC 3.75 L (4.30-5.90) m/uL Hgb 11.1 L (13.0-17.5) gm/dL Hct 36.2 L (39.0-53.0) % MCHC 30.7 L (31.0-37.0) g/dL Neutrophils # 8.8 H (1.3-7.7) k/uL Lymphocytes # 0.7 L (1.0-4.8) k/uL Assessment and Plan Assessment: Status post direct anterior right total hip arthroplasty Plan: Pain control, continue current medication, plan for discharge home on oral medication GI and DVT prophylaxis, continue Xarelto daily Other medical registrar recommendations Continue work physical therapy We'll keep patient on additional night with plan for discharged home tomorrow Time with Patient: Less than 30
[2020-02-12] MEDS: RIVAROXABAN 20 MG TAB PO SCH ×2 (16:04→16:55)
[2020-02-12 20:18] VITALS: RESP 20
[2020-02-12] MEDS: FENOFIBRATE 160 MG TAB PO SCH (20:43)
[2020-02-12] MEDS: SENNOSIDES-DOCUSATE SODIUM 1 EACH TAB PO SCH (20:43)
[2020-02-12] MEDS: LEVOTHYROXINE 25 MCG TAB PO SCH (20:43)
[2020-02-13] MEDS: LACTATED RINGERS 1,000 ML IV SCH (03:45)
[2020-02-13] MEDS: allopurinoL 100 MG TAB PO SCH (08:50)
[2020-02-13] MEDS: LORATADINE 10 MG TAB PO SCH (08:50)
[2020-02-13] MEDS: CYANOCOBALAMIN 500 MCG TAB PO SCH (08:50)
[2020-02-13] MEDS: MELOXICAM 7.5 MG TAB PO SCH (08:50)
[2020-02-13] MEDS: LOSARTAN-HCTZ 50-12.5 MG 1 EACH TAB PO SCH (08:50)
[2020-02-13] MEDS: PANTOPRAZOLE 40 MG/10 ML VIAL IVP SCH (08:50)
--- NOTE | 2020-02-13 12:33 | P.PN ---
Subjective Progress Note Date: 02/13/20 Principal diagnosis: status post direct anterior right total hip arthroplasty Patient evaluated at bedside, resting comfortably. Patient's nausea significantly improved since yesterday. He denies any chest pain or shortness of breath. Objective - Vital Signs Vital signs: Vital Signs Temp 98.1 F 02/13/20 08:25 Pulse 85 02/13/20 08:25 Resp 20 02/13/20 08:25 BP 121/73 02/13/20 08:25 Pulse Ox 94 L 02/13/20 08:25 Intake & Output 02/12/20 02/13/20 02/13/20 18:59 06:59 18:59 Intake Total 20 100 Balance 20 100 Intake: Oral 20 100 Other: Voiding Method Urinal Toilet Toilet # Voids 1 2 # Emeses 2 - Exam Right lower extremity: Incision is clean, dry, and intact. The optifoam is in good condition. There is minimal soft tissue swelling and ecchymosis surrounding the medial and lateral aspects of the incision. Calf is soft, no tenderness with palpation. Plantar flexion, dorsiflexion, EHL, FHL are intact. Sensory exam to light touch throughout the extremity is intact, dorsal pedis pulses 2+. - Labs CBC & Chem 7: 02/12/20 07:10 Assessment and Plan Assessment: Status post direct anterior right total hip arthroplasty Plan: Pain control, Patient will utilize [id number] Tylenol GI and DVT prophylaxis, continue Xarelto daily Other medical records coder recommendations Continue work physical therapy Plan for discharge home today Time with Patient: Less than 30
--- NOTE | 2020-02-13 12:35 | P.DS ---
Providers Date of admission: 02/11/20 05:31 Expected date of discharge: 02/13/20 Attending physician: Abdulaziz Jeffrey Consults: 02/11/20 09:39 Consult Physician Routine Consulting Provider: Codey Simons Consult Reason/Comments: Medical management Do you want consulting provider notified?: Yes Primary care physician: Codey Simons [place] [facility] Course: Date of admission: 02/11/2020 Date of discharge: Admission diagnosis: Status post direct anterior right total hip arthroplasty Discharge diagnosis: Same Attending physician: Dr. Jeffrey Surgical procedures: Direct anterior right total hip arthroplasty Brief history: Patient is a 79-year-old male with a history of progressive primary right hip osteoarthritis. At this point patient has failed conservative treatment measures and has opted to proceed with a elective direct anterior right total hip arthroplasty. Hospital course: Details of patient's surgery can be found in operative report. Patient tolerated the procedure well and was subsequently transported to orthopedic floor. Patient's orthopeidc and medical care was provided daily. Patient had daily laboratory tests performed for evaluation of overall blood counts. Patient had daily physical therapy to include strengthening range of motion as well as education with walker ambulation. Patient was treated with Xarelto for their postoperative DVT prophylaxis during their inpatient stay. Patient was noted to have a relatively uneventful postoperative course. Patient reported satisfactory pain control with oral pain medications by postoperative day 0. Patient showed satisfactory progress with physical therapy. Patient moved steadily through the program and had no difficulty meeting the goals by postoperative day 2. Given patient's otherwise satisfactory course and having met physical therapy goals, plan is to discharge patient home on postoperative day 2. Discharge condition/disposition: Patient will be discharged home in stable condition. Discharge medications: Instructions are given on resumption of patient's normal daily medications per primary care recommendation, in addition patient will be prescribed No new medications. Discharge instructions: 1. Wound care and infection precautions, keep incision dry and covered while showering, no lotions, creams, moisturizers. No soaking, tubs, pools, hottubs. Do not scrub over the incision. 2. Weight-bear as tolerated with walker / cane until follow-up. 3. Ice and elevate when necessary. Do not exceed 20 minutes per hour with ice pack. 4. Utilize compression sleeve until seen at first follow up appointment. 5. Visiting nursing care. 6. Home physical therapy 7. Pain meds and anticoagulants per prescription. 8. Pain medication has potential to cause constipation. Increase oral fluid and fiber intake. Contact primary care provider if you have not had a bowel movement within 48 hours after discharge 9. No anti-inflammatory medication until discussed at first post operative visit, this including Motrin, Aleve, Mobic, Diclofenac. 10. Follow up in office at 2 weeks postop with Bryson Abernathy PA-C 11. Follow up with your primary care doctor 7-10 days after discharge. 12. Contact [facility] with any questions, . Procedures: Direct anterior right total hip arthroplasty Patient Condition at Discharge: Good Plan - Discharge Summary Discharge Rx Participant: No New Discharge Prescriptions: No Action [place]-3 Acid Ethyl Esters [Lovaza] 1 gm PO DAILY Losartan/Hydrochlorothiazide [Losartan-Hctz 100-25 mg Tab] 1 tab PO QAM Allopurinol 100 mg PO DAILY Levothyroxine Sodium [Synthroid] 25 mcg PO HS Fenofibrate [Lofibra] 160 mg PO HS Rivaroxaban [Xarelto] 20 mg PO DAILY Acetaminophen [Tylenol] 500 mg PO DAILY PRN PRN Reason: Pain Cyanocobalamin [Vitamin B-12] 500 mcg PO DAILY Aspirin 325 mg PO DAILY Cetirizine HCl 10 mg PO DAILY Ketorolac [Toradol] 10 mg PO TID PRN PRN Reason: Pain Discharge Medication List Allopurinol 100 mg PO DAILY 03/15/14 [History] Losartan/Hydrochlorothiazide [Losartan-Hctz 100-25 mg Tab] 1 tab PO QAM 03/15/14 [History] [place]-3 Acid Ethyl Esters [Lovaza] 1 gm PO DAILY 03/15/14 [History] Fenofibrate [Lofibra] 160 mg PO HS 04/27/18 [History] Levothyroxine Sodium [Synthroid] 25 mcg PO HS 04/27/18 [History] Acetaminophen [Tylenol] 500 mg PO DAILY PRN 02/05/20 [History] Aspirin 325 mg PO DAILY 02/05/20 [History] Cetirizine HCl 10 mg PO DAILY 02/05/20 [History] Cyanocobalamin [Vitamin B-12] 500 mcg PO DAILY 02/05/20 [History] Ketorolac [Toradol] 10 mg PO TID PRN 02/05/20 [History] Rivaroxaban [Xarelto] 20 mg PO DAILY 02/05/20 [History] Follow up Appointment(s)/Referral(s): Carlos Alberto [facility], [NON-STAFF] - As Needed Ralph Abernathy PAC [PHYSICIAN PRIMARY CLASS TEACHER] - 02/27/20 1:50 pm Codey Simons DO [Primary Care Provider] - 1 Week Activity/Diet/Wound Care/Special Instructions: Orthopedic Discharge Instructions: 1. Wound care and infection precautions, keep incision dry and covered while showering, no lotions, creams, moisturizers. No soaking, pools, hot tubs. Do not scrub over incision. 2. Weight-bear as tolerated with walker / cane until follow-up. 3. Ice and elevate when necessary. Do not exceed 20 minutes per hour with ice pack. 4. Utilize compression sleeve until seen at first follow up appointment. 5. Pain meds and anticoagulants per prescription. 6. Pain medication has potential to cause constipation. Increase oral fluid and fiber intake. Contact primary care provider if you have not had a bowel movement within 48 hours after discharge. 7. No anti-inflammatory medication until discussed at first post operative visit, this including Motrin, Aleve, Mobic, Diclofenac. 8. Follow up in office at 2 weeks postop with Bryson Abernathy PA-C 9. Follow up with your primary care doctor 7-10 days after discharge. 10. Contact [facility] with any questions, . Discharge Disposition: HOME WITH HOME HEALTH SERVICES
--- NOTE | 2020-02-13 19:11 | CDI ---
Documentation Clarification Form Date: 02/13/2020 06:52:00 PM From: Jeanna Block RN, CCDS Admit Date: 02/11/2020 05:31:00 AM Patient Name: Paras Ren Visit Number: [id number] Discharge Date: ATTENTION: The Clinical Documentation Specialists (CDI) and [facility] Coding Staff appreciate your assistance in clarifying documentation. Please respond to the clarification below the line at the bottom and electronically sign. The CDI & [facility] Coding staff will review the response and follow-up if needed. Please note: Queries are made part of the Legal Health Record. If you have any questions, please contact the author of this message via ITS. Dr. Yamil Livingston 02/11 progress note post op nausea and vomiting which has not improved with Zofran is documented. Request further clarification of the postop nausea and vomiting. Patients Admitting Diagnosis: Right hip Osteoarthritis Post-Operative Diagnosis: Same Procedure performed: Direct anterior right total hip arthroplasty press-fit History/Risk Factors: Osteoarthritis, Hypertension, Gout, Pulmonary Embolism Clinical Indicators: 79-year-olf male with symptomatic right hip osteoarthritis present on 02/10 for elective repair of osteoarthritis. Post op day1 patient developed nausea and vomiting which has not improved with Zofran. 02/10 Vital signs; 129/76 71 Treatment: Increased Zofran 4mg ivp q 6 hrs Scopolamine 1.5 mg patch Protonix 40 mg ivp daily Incentive spirometery per protocol In order to accurately reflect this patients severity of illness, please clarify if the Post op nausea and vomiting:: xxx-has been ruled out -is a complication of surgical procedure -is an expected outcome of the surgical procedure -is related to co-morbid condition(s) of -Other please specify -Unable to determine (Last Revision: September 2019) MTDD
--- NOTE | 2020-02-14 10:42 | P.PN ---
Subjective Progress Note Date: 02/13/20 - History of Present Illness This is a 79-year-old male one of Dr. Simons with previous medical history significant for hypertension and hypertensive cardiovascular disease, hyperlipidemia, gout, obesity with obstructive sleep apnea, left lower extremity DVT following hip surgery on Xarelto, Guillain-[place] syndrome, prostate cancer and glaucoma. Patient has been brought in the hospital under the care of Dr. Jeffrey and is status post anterior approach right total hip arthroplasty. Patient is seen today in the bases to recovery area waiting for bed. Patient has not had a Deshpande catheter placed. Blood pressure has been stable. He denies any lightheadedness or dizziness. Pain is currently controlled. He denies any nausea or vomiting. Patient has not yet urinated. Patient has history of losing 16 pounds over the last couple weeks as he states he is not able to stand to make his meals. He does plan to return home at the time of discharge. 02/11: Patient states he has been up to the bathroom and doing well. He has developed nausea and vomiting which has not improved with Zofran. We are increasing frequency of Zofran and adding in scopolamine patch. He has been afebrile, heart rate 71, blood pressure 129/76, pulse ox 97%. Patient did wear CPAP during the night. Repeat CBC reveals hemoglobin of 11.1. Pain is controlled today. Anticipate possible discharge home later today if nausea and vomiting improves. 02/12: The patient states that his nausea and vomiting is much improved and was able to eat his breakfast this morning. He denies any abdominal pain. He slept well last night. Pain is controlled in the right hip. He has been ambulating to the bathroom with a walker with no difficulty. Patient has been afebrile, heart rate 79, blood pressure 101/63, pulse ox 94% on room air. Anticipate patient will be discharged home today. Patient will follow-up Dr. Simons as an outpatient. Review of Systems Constitutional: No fever, no chills, no night sweats. Reports weight loss. No weakness, fatigue or lethargy. No daytime sleepiness. EENT: No headache. No blurred vision or double vision, no loss of vision. No loss of Hearing, no ringing in the ears, no dizziness. No nasal drainage or congestion. No epistaxis. No sore throat. Lungs: No shortness of breath, cough, no sputum production. No wheezing. Cardiovascular: No chest pain, no lower extremity edema. No palpitations. No paroxysmal nocturnal dyspnea. No orthopnea. No lightheadedness or dizziness. No syncopal episodes. Abdominal: No abdominal pain. Denies nausea, denies vomiting. No diarrhea. No constipation. No bloody or tarry stools. No loss of appetite. Genitourinary: No dysuria, increased frequency, urgency. No urinary retention. Musculoskeletal: No myalgias. No muscle weakness, no gait dysfunction, no frequent falls. No back pain. No neck pain. Right hip discomfort. Integumentary: No wounds, no lesions. No rash or pruritus. No unusual bruising. No change in hair or nails. Neurologic: No aphasia. No facial droop. No change in mentation. No head injury. No headache. No paralysis. No paresthesia. Psychiatric: No depression. No anxiety. No mood swings. Endocrine: No abnormal blood sugars. No weight change. No excessive sweating or thirst. No cold intolerance. Physical Examination Gen: This is a morbidly obese 79-year-old male. He is in bed and appears to be comfortable and in no acute distress. No respiratory distress noted. HEENT: Head is atraumatic, normocephalic. Pupils equal, round. Sclerae is anicteric. NECK: Supple. No JVD. No lymphadenopathy. No thyromegaly. LUNGS: Clear to auscultation. No wheezes or rhonchi. No intercostal retracti ons. No chest wall tenderness. HEART: Regular rate and rhythm. No murmur. ABDOMEN: Soft. Bowel sounds are present. No masses. No tenderness. Denies abdominal pain. EXTREMITIES: No pedal edema. No calf tenderness. Dorsalis pedis +2 bilaterally. Right hip dressing in place. No bleeding. No significant edema. No erythema. NEUROLOGICAL: Patient is awake, alert and oriented x3. Cranial nerves 2 through 12 are grossly intact. Assessment and Plan 1. Osteoarthritis status post anterior approach right total hip arthroplasty, postop day 0. Patient has had no postop complications. Continue current pain management, PT and OT per orthopedics. Continue incentive spirometry incidence of atelectasis and hospital-acquired pneumonia. Continue Xarelto. 2. Hypertension, hypertensive cardiovascular disease. Continue losartan hydrochlorothiazide 100/25 mg daily. 3. Obesity with obstructive sleep apnea. Continue BiPAP. 4. History of DVT. Continue Xarelto. 5. Chronic gout. Continue allopurinol 100 mg daily. 6. History of prostate cancer status post surgery and radiation, stable. Monitor for urinary retention. 7. History of glaucoma. Continue eyedrops. 8. History of Guillan-James, resolved. 9. Hyperlipidemia. Continue Zetia 10 mg daily. 10. Postop nausea and vomiting, improved. Increased frequency of Zofran every 6 hours, and scopolamine patch. 11. DVT prophylaxis. Xarelto. 12. GI prophylaxis. Protonix 12. COVID-19 infection not present. Discharge plan: Return home with [facility]. Impression and plan of care have been directed as dictated by the signing physician. Cyn Jiménez nurse practitioner acting as scribe for signing physician. Objective - Vital Signs Vital signs: Vital Signs Temp 98.7 F 02/13/20 01:00 Pulse 79 02/13/20 01:00 Resp 20 02/13/20 01:00 BP 101/63 02/13/20 01:00 Pulse Ox 92 L 02/13/20 01:00 Intake & Output 02/12/20 02/13/20 02/13/20 18:59 06:59 18:59 Intake Total 20 100 Balance 20 100 Intake: Oral 20 100 Other: Voiding Method Urinal Toilet # Voids 1 2 # Emeses 2 - Labs CBC & Chem 7: 02/12/20 07:10
[2020-02-15 04:45] VITALS: BP 121/73; PULSE 85; TEMP 98.1
== END 2020-02-13 14:43 | disposition home or self-care (01) ==
LOC: LABMAIN 09:39 → 4SSUR 13:59 → 2ORMAIN 13:59 → LABMAIN 02-13 14:42 → UNDODISIN 02-13 14:43 → LABMAIN 02-13 14:43 → UNDODISOB 02-13 14:43 → LABMAIN 02-27 19:51
PROVIDERS: ATTEND Orthopaedic Surgery
DX: M16.11 Unilateral primary osteoarthritis, right hip (principal); I25.10 Atherosclerotic heart disease of native coronary artery without angina pectoris; I10 Essential (primary) hypertension; E78.5 Hyperlipidemia, unspecified; E03.9 Hypothyroidism, unspecified; E66.01 Morbid (severe) obesity due to excess calories; Z68.41 Body mass index [BMI] 40.0-44.9, adult; M1A.9XX0 Chronic gout, unspecified, without tophus (tophi); H25.12 Age-related nuclear cataract, left eye; H40.9 Unspecified glaucoma; G47.33 Obstructive sleep apnea (adult) (pediatric); Z99.89 Dependence on other enabling machines and devices; R63.4 Abnormal weight loss; J45.909 Unspecified asthma, uncomplicated; H93.19 Tinnitus, unspecified ear; F40.240 Claustrophobia; Z87.891 Personal history of nicotine dependence; Z86.718 Personal history of other venous thrombosis and embolism; Z85.46 Personal history of malignant neoplasm of prostate; Z86.711 Personal history of pulmonary embolism; Z92.3 Personal history of irradiation; Z86.69 Personal history of other diseases of the nervous system and sense organs; Z96.642 Presence of left artificial hip joint; Z98.1 Arthrodesis status; Z96.651 Presence of right artificial knee joint; Z98.890 Other specified postprocedural states; Z98.41 Cataract extraction status, right eye; Z80.2 Family history of malignant neoplasm of other respiratory and intrathoracic organs; Z82.3 Family history of stroke; Z82.49 Family history of ischemic heart disease and other diseases of the circulatory system; Z80.42 Family history of malignant neoplasm of prostate; Z80.0 Family history of malignant neoplasm of digestive organs; Z80.41 Family history of malignant neoplasm of ovary; Z79.01 Long term (current) use of anticoagulants; Z79.82 Long term (current) use of aspirin; Z79.890 Hormone replacement therapy; Z79.899 Other long term (current) drug therapy; Z88.1 Allergy status to other antibiotic agents; Z88.7 Allergy status to serum and vaccine; Z88.8 Allergy status to other drugs, medicaments and biological substances
CPT/HCPCS: 88305; 85025; 88311; 73501; 27130; C1776; J2250; J0171; J1100; J2710; J0690; J2405 ×2; J2001; J3010; J1885; J1170 ×2; J2795; J2370; J2704; J0735; C9113 ×2

== ENCOUNTER 2020-02-25 07:30 | Inpatient (IN) | payer MEDICARE, OTHER ==
[~2020-02-25 07:30] MED LIST changes: -ACETAMINOPHEN TAB 500 MG TAB ONE; -ACETAMINOPHEN TAB 500 MG TAB PO ONE; -DEXAMETHASONE SOD PHOSPHATE 10 MG/ML 1 ML VIAL IV ONE; -GLYCOPYRROLATE 0.2 MG/ML 2 ML VIAL ONE; -HYDROcodone/APAP 5-325MG 1 EACH TAB PO PRN; -HYDROmorphone (PF) 1 MG/ML ONE; -HYDROmorphone 0.5 MG/0.5 ML SYRINGE IVP PRN; -LACTATED RINGERS 1,000 ML IV ONE; -LACTATED RINGERS 1,000 ML IV SCH; -LIDOCAINE 1% INJ 10MG/ML (20 ML MDV) ONE; -MELOXICAM 7.5 MG TAB PO ONE; -MIDAZOLAM 2 MG/2 ML VIAL ONE; -NALOXONE 0.4 MG/ML 1 ML VIAL IV PRN; -NEOSTIGMINE 1 MG/ML 10 ML VIAL ONE; -ONDANSETRON 4 MG/2 ML VIAL IVP ONE; -ONDANSETRON 4 MG/2 ML VIAL IVP PRN; -ONDANSETRON 4 MG/2 ML VIAL ONE; -PHENYLEPHRINE-0.9% NACL SYG 1 MG/10 ML SYRINGE ONE; -PROPOFOL 10 MG/ML 20 ML VIAL IV ONE; -ROCURONIUM 10 MG/ML (5 ML VIAL) IV ONE; -ROPIVACAINE 246.25 MG, EPINEPHrine 0.5 MG, KETOROLAC 30 MG, cloNIDine HCL/PF 80 MCG, WA... MISCELLANE ONE; -SODIUM CHLORIDE 0.9% 100 ML BAG ONE; -TRANEXAMIC ACID 1,000 MG in SODIUM CHLORIDE 0.9% 100 ML IVPB ONE; -TRANEXAMIC ACID 1,000 MG/10 ML VIAL ONE; +ceFAZolin 3 GM in SODIUM CHLORIDE 0.9% 100 ML IVPB SCH; -fentaNYL (PF) 50 MCG/ML 2 ML AMP ONE; -traMADol 50 MG TAB PO PRN
[2020-02-25] MEDS ORDERED: LACTATED RINGERS 1,000 ML IV ONE ×2 (15:47→19:00)
[2020-02-25] MEDS ORDERED: LIDOCAINE 1% (10MG/ML) FOR IV START INTRADERMA ONE (15:48)
[2020-02-25] MEDS ORDERED: ONDANSETRON 4 MG/2 ML VIAL ONE (15:53)
[2020-02-25] MEDS ORDERED: ONDANSETRON 4 MG/2 ML VIAL IVP ONE (15:57)
[2020-02-25] MEDS ORDERED: DEXAMETHASONE SOD PHOSPHATE 10 MG/ML 1 ML VIAL IV ONE (15:58)
--- NOTE | 2020-02-25 17:11 | P.HPOR ---
History of Present Illness H&P Date: 02/25/20 Chief Complaint: Right anterior hip wound 79-year-old patient underwent primary direct anterior right total hip arthroplasty by myself on 02/11/2020. He noted dehiscence of the wound proximally at the 10-12 day postoperative period. He was reporting no pain. I recommended irrigation and repair of the wound. He was agreeable and consent was obtained. Past Medical History Past Medical History: Asthma, Cancer, Deep Vein Thrombosis (DVT), Eye Disorder, Hyperlipidemia, Hypertension, Sleep Apnea/CPAP/BIPAP Additional Past Medical History / Comment(s): TINNITUS,GLAUCOMA, HX PROSTATE CA 1996 & 2012 RADIATION [place],USES BIPAP, BLOOD CLOT LT KNEE AFTER HIP SURGERY,GULLIAN BARRE SYNDROME 1996, gout, LT CATARACT History of Any Multi-Drug Resistant Organisms: None Reported Past Surgical History: Adenoidectomy, Back Surgery, Hernia Repair, Joint Replacement, Prostate Surgery, Tonsillectomy Additional Past Surgical History / Comment(s): LEFT HIP REPLACEMENT, BACK FUSION, PROSTATE, RECTAL FISTULA REPAIR X 2,UMBILICAL HERNIA REPAIR,LT KNEE SCOPE, 09-08-15 TOTAL LT KNEE REPLACEMENT, 01-19-16 TOTAL RT KNEE, RT CATARACT REMOVED; right hip replacement Past Anesthesia/Blood Transfusion Reactions: No Reported Reaction, Motion Sickness Additional Past Anesthesia/Blood Transfusion Reaction / Comment(s): Mu-ism, CLAUSTROPHOBIA, MOTION SICKESS IF LAYING FLAT ESPECIALLY IF RIDING IN AN AMBULANCE Past Psychological History: No Psychological Hx Reported Additional Psychological History / Comment(s): 2 years ago Past Alcohol Use History: Occasional Additional Past Alcohol Use History / Comment(s): QUIT SMOKING 1989, SMOKED APPROX 30 YEARS ON AND OFF ABOUT PACK PER WEEK. Past Drug Use History: None Reported - Past Family History Mother Family Medical History: Cancer Additional Family Medical History / Comment(s): Mother at the age of 82 from pleural cancer ?Mesothelioma. Father Family Medical History: Cancer, CVA/TIA, Myocardial Infarction (SD) Additional Family Medical History / Comment(s): HEART PROBLEMS-PACEMAKER. Father at the age of 83 from CVA,SD and had a PPM and history of prostate cancer Brother(s) Family Medical History: Coronary Artery Disease (CAD) Additional Family Medical History / Comment(s): Patient has one brother with CAD. Sister(s) Family Medical History: Cancer Additional Family Medical History / Comment(s): Patient has 2 sisters one with throat cancer and the other one with ovarian cancer.throat cancer Son(s) Family Medical History: Coronary Artery Disease (CAD), Hypertension Additional Family Medical History / Comment(s): Patient has 2 sons one of them with CAD. Medications and Allergies Home Medications Medication Instructions Recorded Confirmed Type Allopurinol 100 mg PO DAILY 03/15/14 02/25/20 History Losartan/Hydrochlorothiazide 1 tab PO QAM 03/15/14 02/25/20 History [Losartan-Hctz 100-25 mg Tab] [place]-3 Acid Ethyl Esters [Lovaza] 1 gm PO DAILY 03/15/14 02/25/20 History Fenofibrate [Lofibra] 160 mg PO HS 04/27/18 02/25/20 History Levothyroxine Sodium [Synthroid] 25 mcg PO HS 04/27/18 02/25/20 History Acetaminophen [Tylenol] 500 mg PO DAILY PRN 02/05/20 02/25/20 History Aspirin 325 mg PO DAILY 02/05/20 02/25/20 History Cetirizine HCl 10 mg PO DAILY 02/05/20 02/25/20 History Cyanocobalamin [Vitamin B-12] 500 mcg PO DAILY 02/05/20 02/25/20 History Ketorolac [Toradol] 10 mg PO TID PRN 02/05/20 02/25/20 History Rivaroxaban [Xarelto] 20 mg PO DAILY 02/05/20 02/25/20 History Allergies Allergy/AdvReac Type Severity Reaction Status Date / Time ciprofloxacin [From Cipro] Allergy Unknown Verified 02/11/20 06:24 ciprofloxacin HCl Allergy Unknown Verified 02/11/20 06:24 [From Cipro] Tetanus Vaccines and Toxoid Allergy Swelling Verified 02/11/20 06:24 [Tetanus Vaccines & Toxoid] warfarin sodium Allergy Swelling Verified 02/11/20 06:24 [From Coumadin] Physical Examination Osteopathic Statement: *. No significant issues noted on an osteopathic structural exam other than those noted in the History and Physical/Consult. There is dehiscence of the anterior incision proximally measuring about 5 cm. There is some serous drainage. There is no erythema. Logrolling of the hip is without pain. Homans and Elmer negative. Distal neurovascular exam is intact. Results - Diagnostic results Hip x-ray: image reviewed (X-ray obtained in my office revealed a stable appearing total hip arthroplasty) Assessment and Plan Assessment: 1. Right anterior hip wound proximal dehiscence 2. History direct anterior right total hip arthroplasty Plan: Irrigation and debridement with repair right anterior hip wound
[2020-02-25] MEDS ORDERED: MIDAZOLAM 2 MG/2 ML VIAL ONE (17:32)
[2020-02-25] MEDS ORDERED: SUCCINYLCHOLINE CHLORIDE 100 MG/5 ML SYR IV ONE (17:32)
[2020-02-25] MEDS ORDERED: LIDOCAINE 1% INJ 10MG/ML (20 ML MDV) ONE (17:32)
[2020-02-25] MEDS ORDERED: fentaNYL (PF) 50 MCG/ML 2 ML AMP ONE (17:32)
[2020-02-25] MEDS ORDERED: PROPOFOL 10 MG/ML 20 ML VIAL IV ONE (17:32)
[2020-02-25] MEDS ORDERED: ceFAZolin 3,000 MG in SODIUM CHLORIDE 0.9% IRRIGATIO 3,000 ML IRRIGATION ONE (18:15)
[2020-02-25] MEDS ORDERED: HYDROcodone/APAP 5-325MG 1 EACH TAB PO PRN ×2 (18:37)
[2020-02-25] MEDS ORDERED: NALOXONE 0.4 MG/ML 1 ML VIAL IV PRN (18:37)
[2020-02-25] MEDS ORDERED: HYDROmorphone 0.5 MG/0.5 ML SYRINGE IVP PRN ×3 (18:37)
--- NOTE | 2020-02-25 18:37 | P.OP ---
Date of Procedure: 02/25/20 Preoperative Diagnosis: Right anterior hip incisional dehiscence Postoperative Diagnosis: Same Procedure(s) Performed: Irrigation with excisional debridement right hip wound with secondary closure Anesthesia: ELLIOTT Surgeon: Abdulaziz Jeffrey Mold Filling Operator #1: Ralph Abernathy Estimated Blood Loss (ml): 11 Pathology: other (Cultures) Condition: stable Disposition: PACU Indications for Procedure: 79-year-old patient who had undergone direct anterior right total hip arthroplasty approximately 2 weeks ago was seen with a wound dehiscence. I recommended irrigation debridement and secondary closure, he was agreeable and consent was obtained. Operative Findings: see description of procedure Description of Procedure: Patient taken to the operative suite. Patient underwent a general anesthetic by the department of anesthesia. Patient was transferred to the operative table. The wound was identified and the area was prepped and draped in the normal sterile orthopedic fashion. I felt inside the wound it didn't seem to penetrate the fascia. I did extend the wound by 2 cm distally with a #10 blade. Again the fascia was completely intact with just a superficial subcutaneous dehiscence to the fascia. We irrigated the wound out with 1000 mL antibiotic saline solution via pulse lavage. I now used a #10 blade and performed a surgical debridement of devitalized tissue in the subcutaneous area. All the remaining tissue looked healthy and robust. I irrigated the wound out with additional 2000 mL of antibiotic solution with the pulse lavage. I now with assistance of Bryson TRAYLOR repaired the wound in layers with 2-0 Vicryl. The skin was repaired with nylon sutures. Opteform and sterile dressings were applied. The patient was awakened and transferred to a bed having tolerated procedure well. Bryson TRAYLOR assisted with this procedure.
[2020-02-25] MEDS ORDERED: SODIUM CHLORIDE 0.9% 1,000 ML IV SCH (18:45)
--- NOTE | 2020-02-25 23:10 | P.CONS ---
History of Present Illness - Reason for Consult Consult date: 02/25/20 Medical management, Requesting physician: Abdulaziz Jeffrey - Chief Complaint Dehiscence of the wound from anterior right total hip arthroplasty - History of Present Illness 79 year-old morbidly obese male one of Dr. Simons patient who had right total hip arthroplasty anterior on 02/11/2020 done very well 10 days later when he developed to have slight superficial infection and drainage of the wound with mild dehiscence. Patient was seen Dr. Jeffrey with decided to irrigate and do a repair of the wound. Procedure was done today successfully was off his anticoagulation was in quite but pain was admitted to the hospital after his procedure for pain control and symptom control. Review of Systems CONSTITUTIONAL: Well-developed no acute respiratory distress. EYES: No icterus sclerae, no conjunctivitis. EARS, NOSE, MOUTH, THROAT, and FACE: No sore throat, lymphadenopathy, carotid bruits or deformity. RESPIRATORY: Mild shortness of breath no cough wheezes. CARDIOVASCULAR: Positive PND orthopnea palpitation. GASTROINTESTINAL: No Abd pain, Nausea or vomiting, no Diarrhea or constipation, No GI Bleed, no distention or masses. GENITOURINARY: Negative for Hematuria or UTI, no kidney stones. INTEGUMENT/BREAST: Right hip wound dehiscence and infection. HEMATOLOGIC/LYMPHATIC: Negative for bleed or purpura. MUSCULOSKELTAL: Positive pain and discomfort with drainage of the right hip area. NEURLOGICAL: No LOC, Sz or syncope, blurred vision dizziness or abnormality.. BEHAVIORAL/PSYCH: Negative. ENDOCRINE: Negative. Past Medical History Past Medical History: Asthma, Cancer, Deep Vein Thrombosis (DVT), Eye Disorder, Hyperlipidemia, Hypertension, Sleep Apnea/CPAP/BIPAP Additional Past Medical History / Comment(s): TINNITUS,GLAUCOMA, HX PROSTATE CA 1996 & 2012 RADIATION [place],USES BIPAP, BLOOD CLOT LT KNEE AFTER HIP SURGERY,GULLIAN BARRE SYNDROME 1996, gout, LT CATARACT History of Any Multi-Drug Resistant Organisms: None Reported Past Surgical History: Adenoidectomy, Back Surgery, Hernia Repair, Joint Repla cement, Prostate Surgery, Tonsillectomy Additional Past Surgical History / Comment(s): LEFT HIP REPLACEMENT, BACK FUSION, PROSTATE, RECTAL FISTULA REPAIR X 2,UMBILICAL HERNIA REPAIR,LT KNEE SCOPE, 09-08-15 TOTAL LT KNEE REPLACEMENT, 01-19-16 TOTAL RT KNEE, RT CATARACT REMOVED; right hip replacement Past Anesthesia/Blood Transfusion Reactions: No Reported Reaction, Motion Sickness Additional Past Anesthesia/Blood Transfusion Reaction / Comm: Caodaism, CLAUSTROPHOBIA, MOTION SICKESS IF LAYING FLAT ESPECIALLY IF RIDING IN AN AMBULANCE Past Psychological History: No Psychological Hx Reported Additional Psychological History / Comment(s): 2 years ago Past Alcohol Use History: Occasional Additional Past Alcohol Use History / Comment(s): QUIT SMOKING 1989, SMOKED APPROX 30 YEARS ON AND OFF ABOUT PACK PER WEEK. Past Drug Use History: None Reported - Past Family History Mother Family Medical History: Cancer Additional Family Medical History / Comment(s): Mother at the age of 82 from pleural cancer ?Mesothelioma. Father Family Medical History: Cancer, CVA/TIA, Myocardial Infarction (NE) Additional Family Medical History / Comment(s): HEART PROBLEMS-PACEMAKER. Father at the age of 83 from CVA,NE and had a PPM and history of prostate cancer Brother(s) Family Medical History: Coronary Artery Disease (CAD) Additional Family Medical History / Comment(s): Patient has one brother with CAD. Sister(s) Family Medical History: Cancer Additional Family Medical History / Comment(s): Patient has 2 sisters one with t hroat cancer and the other one with ovarian cancer.throat cancer Son(s) Family Medical History: Coronary Artery Disease (CAD), Hypertension Additional Family Medical History / Comment(s): Patient has 2 sons one of them with CAD. Medications and Allergies Home Medications Medication Instructions Recorded Confirmed Type Allopurinol 100 mg PO DAILY 03/15/14 02/25/20 History Losartan/Hydrochlorothiazide 1 tab PO QAM 03/15/14 02/25/20 History [Losartan-Hctz 100-25 mg Tab] [place]-3 Acid Ethyl Esters [Lovaza] 1 gm PO DAILY 03/15/14 02/25/20 History Fenofibrate [Lofibra] 160 mg PO HS 04/27/18 02/25/20 History Levothyroxine Sodium [Synthroid] 25 mcg PO HS 04/27/18 02/25/20 History Acetaminophen [Tylenol] 500 mg PO DAILY PRN 02/05/20 02/25/20 History Aspirin 325 mg PO DAILY 02/05/20 02/25/20 History Cetirizine HCl 10 mg PO DAILY 02/05/20 02/25/20 History Cyanocobalamin [Vitamin B-12] 500 mcg PO DAILY 02/05/20 02/25/20 History Ketorolac [Toradol] 10 mg PO TID PRN 02/05/20 02/25/20 History Rivaroxaban [Xarelto] 20 mg PO DAILY 02/05/20 02/25/20 History Allergies Allergy/AdvReac Type Severity Reaction Status Date / Time ciprofloxacin [From Cipro] Allergy Unknown Verified 02/11/20 06:24 ciprofloxacin HCl Allergy Unknown Verified 02/11/20 06:24 [From Cipro] Tetanus Vaccines and Toxoid Allergy Swelling Verified 02/11/20 06:24 [Tetanus Vaccines & Toxoid] warfarin sodium Allergy Swelling Verified 02/11/20 06:24 [From Coumadin] Physical Exam Vitals: Vital Signs Temp Pulse Pulse Resp BP Pulse Ox 02/25/20 20:15 98.8 F 72 20 151/78 95 02/25/20 19:42 72 16 140/78 98 02/25/20 19:27 69 16 142/77 99 02/25/20 19:12 68 16 141/75 99 02/25/20 18:57 97 F L 78 16 148/71 96 02/25/20 15:25 97.2 F L 71 16 132/60 97 Intake and Output 02/25/20 02/25/20 02/25/20 06:59 14:59 22:59 Intake Total 1501.5 Output Total 11 Balance 1490.5 Intake: IV 1501.5 Output: Estimated Blood Loss 11 Other: Weight 131.7 kg General Appearance: Alert, cooperative, no distress, morbidly obese. Neck HEENT: Supple, no lymphadenopathy, no thyroid enlargement, no carotid bruits. Lungs: Clear to auscultation without crackles or wheezes no rhonchi, no deformity. Chest Wall: Chest wall normal expansion with deep inspiration no tenderness and no deformity was found on exam, no costochondral pain or discomfort. Heart: Regular rate and rhythm, S1, S2 normal, no murmur, rub or gallop. Back: Symmetric, no curvature, ROM normal, no CVA tenderness. Abdomen: Soft, non-tender, bowel sounds active all four quadrants, no masses, no organomegaly. Extremities: Right hip incision is covered currently with dressing after surgery with no drainage no bleeding. Pulses: 2+ and symmetric. Skin: Skin color, texture, tugor normal, no rashes or lesions. Neurologic: Alert oriented x3 cranial nerves II through XII intact, no motor deficit, no abnormal balance or gait. Assessment and Plan Assessment: 1 dehiscence and wound infection 10 days after direct anterior right total hip arthroplasty: Patient went for surgery had irrigation and repair afterward with Dr. Jeffrey successfully and has done well was admitted to the floor to watch hemodynamic status. 2 post recent diuretic anterior right total hip arthroplasty prostatic looks good with no major problem except that dehiscence and doubt superficial wound which will continue direct medication management. 3 hypertension: Has been on losartan HCT handed/25 mg a day. 4 hypothyroidism: Continue levothyroxine 25 g daily. 5 hyperlipidemia: Remain on fenofibrate. 6 history of deep venous thrombosis: Remain on Xarelto continue medication. 7 history of obstructive sleep apnea: Has been using his CPAP regularly. 8 history of asthma: Still on rescue inhaler. 9 BPH: Watch for any urinary retention. 10 chronic pain management: Has been on Toradol and hydrocodone as needed. CODE STATUS: Full code. Dr. Jeffrye thank you very much for the consult if I can be any further help to please let me know.
[2020-02-26] MEDS: ceFAZolin 3 GM in SODIUM CHLORIDE 0.9% 100 ML IVPB SCH ×2 (03:03→09:04)
[2020-02-26] MEDS ORDERED: PANTOPRAZOLE 40 MG TABLET PO SCH (07:30)
[2020-02-26 07:37] LABS: Basophils % (A) 0 %; Eosinophils % (A) 0 %; HCT 32.7 % (39.0-53.0); HGB 10.4 gm/dL (13.0-17.5); Hypochromasia Moderate; Lymphocytes # (A) 0.7 k/uL (1.0-4.8); Lymphocytes % (A) 11 %; MCH 30.1 pg (25.0-35.0); MCHC 31.8 g/dL (31.0-37.0); MCV 94.7 fL (80.0-100.0); Mean Platelet Volume 7.5; Monocytes # (A) 0.2 k/uL (0-1.0); Monocytes % (A) 3 %; Neutrophils # (A) 5.5 k/uL (1.3-7.7); Neutrophils % (A) 85 %; Platelet Count 428 k/uL (150-450); RBC 3.46 m/uL (4.30-5.90); RDW 13.4 % (11.5-15.5); WBC 6.4 k/uL (3.8-10.6)
[2020-02-26 08:03] LABS: Albumin 3.3 g/dL (3.5-5.0); Calcium 8.6 mg/dL (8.4-10.2); Potassium 4.1 mmol/L (3.5-5.1); Total Bilirubin 0.3 mg/dL (0.2-1.3); Total Protein 5.7 g/dL (6.3-8.2)
[2020-02-26] MEDS ORDERED: ETODOLAC 300 MG CAPSULE PO PRN (09:00)
[2020-02-26] MEDS ORDERED: CYANOCOBALAMIN 500 MCG TAB PO SCH (09:00)
[2020-02-26] MEDS ORDERED: LOSARTAN-HCTZ 50-12.5 MG 1 EACH TAB PO SCH (09:00)
[2020-02-26] MEDS ORDERED: LORATADINE 10 MG TAB PO SCH (09:00)
[2020-02-26] MEDS ORDERED: ACETAMINOPHEN TAB 500 MG TAB PO PRN (09:00)
[2020-02-26] MEDS ORDERED: ASPIRIN 325 MG TAB PO SCH (09:00)
[2020-02-26] MEDS ORDERED: ENOXAPARIN 40 MG/0.4 ML SYRINGE SQ SCH (09:00)
[2020-02-26] MEDS ORDERED: NON FORMULARY DRUG (Omega-3 Acid Ethyl Esters [Lovaza] 1 GM) PO SCH (09:00)
[2020-02-26] MEDS ORDERED: ONDANSETRON 4 MG/2 ML VIAL IVP PRN (09:00)
[2020-02-26] MEDS ORDERED: allopurinoL 100 MG TAB PO SCH (09:00)
--- NOTE | 2020-02-26 10:12 | P.PN ---
Subjective Progress Note Date: 02/26/20 Principal diagnosis: status post irrigation with excisional debridement right hip wound with secondary closure patient evaluated today at bedside, is resting comfortably. He has no acute complaints this time. He denies chest pain or shortness of breath. Objective - Vital Signs Vital signs: Vital Signs Temp 98.6 F 02/26/20 07:18 Pulse 62 02/26/20 09:46 Resp 18 02/26/20 09:46 BP 138/69 02/26/20 07:18 Pulse Ox 95 02/25/20 20:15 Intake & Output 02/25/20 02/26/20 02/26/20 18:59 06:59 18:59 Intake Total 1101.5 600 180 Output Total 11 400 Balance 1090.5 200 180 Weight 131.7 kg Intake: IV 1101.5 400 Oral 200 180 Output: Urine 400 Estimated Blood Loss 11 Other: Voiding Method Urinal - Exam right lower extremity: Foam dressing is in good position and condition, no active drainage visualized. No significant soft tissue swelling present in the leg. No significant erythema present. Calf is soft, no tenderness with palpation. Distal neurovascular exam is intact - Labs CBC & Chem 7: 02/26/20 06:50 02/26/20 06:50 Labs: Abnormal Lab Results - Last 24 Hours (Table) 02/26/20 02/26/20 Range/Units 06:50 06:50 RBC 3.46 L (4.30-5.90) m/uL Hgb 10.4 L (13.0-17.5) gm/dL Hct 32.7 L (39.0-53.0) % Lymphocytes # 0.7 L (1.0-4.8) k/uL Creatinine 1.30 H (0.66-1.25) mg/dL Glucose 122 H (74-99) mg/dL Total Protein 5.7 L (6.3-8.2) g/dL Albumin 3.3 L (3.5-5.0) g/dL Microbiology - Last 24 Hours (Table) 02/25/20 18:20 Gram Stain - Preliminary Hip - Right Wound Culture - Preliminary 02/25/20 18:20 Anaerobic Culture - Preliminary Hip - Right Assessment and Plan Assessment: status post irrigation with excisional debridement right hip wound with secondary closeure Plan: Pain control, patient has oral medication at home GI and DVT prophylaxis, he will resume his normally prescribed Xarelto Wound care, patient will have new foam dressing placed every 3 days. Nursing order will be placed for maintenance changes. Incision was also be covered and dry while showering. He will finish out the oral antibiotic that was prescribed Plan [facility] 1 [facility] Time with Patient: Less than 30
--- NOTE | 2020-02-26 10:18 | P.DS ---
Providers Date of admission: 02/25/20 15:01 Expected date of discharge: 02/26/20 Attending physician: Abdulaziz Jeffrey Consults: 02/25/20 18:37 Consult Physician Routine Consulting Provider: Yamil Livingston Reason/Comments: Medical management Do you want consulting provider notified?: Yes Primary care physician: [facility] Course: Date of admission: 02/25/2020 Date of discharge: 02/26/2020 Admission diagnosis: Status post irrigation with excisional debridement right hip wound with secondary closure Discharge diagnosis: Same Attending physician: Dr. Jeffrey Surgical procedures: Irrigation with excisional debridement right hip wound secondary closure Brief history: Patient is a 79-year-old male who had recently undergone direct anterior right total hip arthroplasty by Dr. Jeffrey on 02/11/2020. Patient had been doing fairly well at home with no acute complaints. Around the 10-12 postop day, he noted some issues with the proximal aspect of his wound. He was evaluated by home care and advised follow-up in our office. Patient was seen by myself in the office first postop visit, determined he had a superficial dehiscence proximal wound, he was scheduled for surgery with Dr. Jeffrey for 02/25/2020. Hospital course: Details of patient's surgery can be found in operative report. Patient tolerated the procedure well and was subsequently transported to orthopedic floor. Patient's orthopeidc and medical care was provided daily. Patient had daily laboratory tests performed for evaluation of overall blood counts. Patient had daily physical therapy to include strengthening range of motion as well as education with walker ambulation. Patient was treated with Xarelto for their postoperative DVT prophylaxis during their inpatient stay. Patient was noted to have a relatively uneventful postoperative course. Patient reported satisfactory pain control with oral pain medications by postoperative day 0. Patient showed satisfactory progress with physical therapy. Patient moved steadily through the program and had no difficulty meeting the goals by postoperative day 1. Given patient's otherwise satisfactory course and having met physical therapy goals, plan is to discharge patient [home] on postoperative day 1. Discharge condition/disposition: Patient will be discharged home in stable condition. Discharge medications: Instructions are given on resumption of patient's normal daily medications per primary care recommendation, in addition patient will be prescribed no new medications. Discharge instructions: 1. Wound care and infection precautions, keep incision dry and covered while showering, no lotions, creams, moisturizers. No soaking, tubs, pools, hottubs. Do not scrub over the incision. 2. Weight-bear as tolerated with walker / cane until follow-up. 3. Ice and elevate when necessary. Do not exceed 20 minutes per hour with ice pack. 4. Utilize compression sleeve until seen at first follow up appointment. 5. Visiting nursing care. 6. Home physical therapy [including home CPM]. 7. Pain meds and anticoagulants per prescription. 8. Pain medication has potential to cause constipation. Increase oral fluid and fiber intake. Contact primary care provider if you have not had a bowel movement within 48 hours after discharge 9. No anti-inflammatory medication until discussed at first post operative visit, this including Motrin, Aleve, Mobic, Diclofenac 10. Follow up in office at 2 weeks postop with Bryson Abernathy PA-C 11. Follow up with your primary care doctor 7-10 days after discharge. 12. Contact [facility] with any questions, . Procedures: Irrigation with excisional debridement right hip wound with secondary closure Patient Condition at Discharge: Good Plan - Discharge Summary New Discharge Prescriptions: New Pantoprazole [Protonix] 40 mg PO AC-BRKFST #30 tablet. Ondansetron [Zofran] 4 mg PO Q8HR PRN #20 tab PRN Reason: Nausea Nystatin 100,000 Unit/gm Powd [Mycostatin Powder] 1 applic TOPICAL BID #40 gm Continue [place]-3 Acid Ethyl Esters [Lovaza] 1 gm PO DAILY Losartan/Hydrochlorothiazide [Losartan-Hctz 100-25 mg Tab] 1 tab PO QAM Allopurinol 100 mg PO DAILY Levothyroxine Sodium [Synthroid] 25 mcg PO HS Fenofibrate [Lofibra] 160 mg PO HS Rivaroxaban [Xarelto] 20 mg PO DAILY Acetaminophen [Tylenol] 500 mg PO DAILY PRN PRN Reason: Pain Cyanocobalamin [Vitamin B-12] 500 mcg PO DAILY Aspirin 325 mg PO DAILY Cetirizine HCl 10 mg PO DAILY Ketorolac [Toradol] 10 mg PO TID PRN PRN Reason: Pain Discharge Medication List Allopurinol 100 mg PO DAILY 03/15/14 [History] Losartan/Hydrochlorothiazide [Losartan-Hctz 100-25 mg Tab] 1 tab PO QAM 03/15/14 [History] [place]-3 Acid Ethyl Esters [Lovaza] 1 gm PO DAILY 03/15/14 [History] Fenofibrate [Lofibra] 160 mg PO HS 04/27/18 [History] Levothyroxine Sodium [Synthroid] 25 mcg PO HS 04/27/18 [History] Acetaminophen [Tylenol] 500 mg PO DAILY PRN 02/05/20 [History] Aspirin 325 mg PO DAILY 02/05/20 [History] Cetirizine HCl 10 mg PO DAILY 02/05/20 [History] Cyanocobalamin [Vitamin B-12] 500 mcg PO DAILY 02/05/20 [History] Ketorolac [Toradol] 10 mg PO TID PRN 02/05/20 [History] Rivaroxaban [Xarelto] 20 mg PO DAILY 02/05/20 [History] Nystatin 100,000 Unit/gm Powd [Mycostatin Powder] 1 applic TOPICAL BID #40 gm 02/26/20 [Rx] Ondansetron [Zofran] 4 mg PO Q8HR PRN #20 tab 02/26/20 [Rx] Pantoprazole [Protonix] 40 mg PO AC-BRKFST #30 tablet. 02/26/20 [Rx] Follow up Appointment(s)/Referral(s): Codey Simons DO [Primary Care Provider] - 1 Week Abdulaziz Jeffrey DO [Doctor of Osteopathic Medicine] - 1 Week Activity/Diet/Wound Care/Special Instructions: Wound instructions: 1. Order was placed for home nurse to change foam dressing every 3 days 2. Keep foam dressing covered and dry while showering 3. Nystatin powder was prescribed 4. Discussed with patient the need to keep the area dry, utilizing sterile gauze or clean towels to be changed daily Discharge Disposition: HOME WITH HOME HEALTH SERVICES
[2020-02-26 11:45] VITALS: BP 134/71; PULSE 70; RESP 16; TEMP 98.2
--- NOTE | 2020-02-26 13:53 | P.PN ---
Subjective Progress Note Date: 02/26/20 79 year-old morbidly obese male one of Dr. Simons patient who had right total hip arthroplasty anterior on 02/11/2020 done very well 10 days later when he developed to have slight superficial infection and drainage of the wound with mild dehiscence. Patient was seen Dr. Jeffrey with decided to irrigate and do a repair of the wound. Procedure was done today successfully was off his anticoagulation was in quite but pain was admitted to the hospital after his procedure for pain control and symptom control. 02/25: She was seen today in follow-up. He is currently on Kefzol. PT and OT are expected to work with him. He states he is using a walker at home. He denies any pain in the hip area. He is having nausea and vomiting for which Zofran will be added and we will also provide a prescription for home. He has been afebrile, heart rate 62, blood pressure 138/69, patient on room air. Blood work reveals WBC 6.4, hemoglobin 10.4. Creatinine 1.3, blood sugar 122. Anticipate he will be discharged home later today. Review of systems CONSTITUTIONAL: Well-developed no acute respiratory distress. Denies fever, chills. EYES: No icterus sclerae, no conjunctivitis. EARS, NOSE, MOUTH, THROAT, and FACE: No sore throat, lymphadenopathy, carotid bruits or deformity. RESPIRATORY: Mild shortness of breath no cough wheezes. CARDIOVASCULAR: Positive PND orthopnea palpitation. GASTROINTESTINAL: No Abd pain, reports Nausea or vomiting, no Diarrhea or constipation, No GI Bleed, no distention or masses. GENITOURINARY: Negative for Hematuria or UTI, no kidney stones. INTEGUMENT/BREAST: Right hip wound dehiscence and infection. HEMATOLOGIC/LYMPHATIC: Negative for bleed or purpura. MUSCULOSKELTAL: Positive pain and discomfort with drainage of the right hip area. NEURLOGICAL: No LOC, Sz or syncope, blurred vision dizziness or abnormality.. BEHAVIORAL/PSYCH: Negative. ENDOCRINE: Negative. Physical examination General Appearance: Alert, cooperative, no distress, morbidly obese. Patient resting comfortably in bed. Neck HEENT: Supple, no lymphadenopathy, no thyroid enlargement, no carotid bruits. Lungs: Clear to auscultation without crackles or wheezes no rhonchi, no deformity. Chest Wall: Chest wall normal expansion with deep inspiration no tenderness and no deformity was found on exam, no costochondral pain or discomfort. Heart: Regular rate and rhythm, S1, S2 normal, no murmur, rub or gallop. Back: Symmetric, no curvature, ROM normal, no CVA tenderness. Abdomen: Soft, non-tender, bowel sounds active all four quadrants, no masses, no organomegaly. Extremities: Right hip incision is covered currently with dressing after surgery with no drainage no bleeding. Pulses: 2+ and symmetric. Skin: Skin color, texture, tugor normal, no rashes or lesions. Neurologic: Alert oriented x3 cranial nerves II through XII intact, no motor deficit, no abnormal balance or gait. Assessment: 1 dehiscence and wound infection 10 days after direct anterior right total hip arthroplasty: Patient went for surgery had irrigation and repair afterward with Dr. Jeffrey successfully and has done well was admitted to the floor to watch hemodynamic status. Patient is currently on Kefzol IV. 2 post recent diuretic anterior right total hip arthroplasty prostatic looks good with no major problem except that dehiscence and doubt superficial wound which will continue direct medication management. 3 hypertension: Has been on losartan HCT handed/25 mg a day. 4 hypothyroidism: Continue levothyroxine 25 g daily. 5 hyperlipidemia: Remain on fenofibrate. 6 history of deep venous thrombosis: Remain on Xarelto continue medication. 7 history of obstructive sleep apnea: Has been using his CPAP regularly. 8 history of asthma: Still on rescue inhaler. 9 BPH: Watch for any urinary retention. 10 chronic pain management: Has been on Toradol and hydrocodone as needed. 11. Nausea and vomiting. Zofran added. Prescription for Zofran for home sent to his pharmacy. CODE STATUS: Full code. Dr. Jeffrey thank you very much for the consult if I can be any further help to please let me know. Discharge plan: Home with [facility] Impression and plan of care have been directed as dictated by the signing physician. Cyn Jiménez nurse practitioner acting as scribe for signing physician. Objective - Vital Signs Vital signs: Vital Signs Temp 98.6 F 02/26/20 07:18 Pulse 62 02/26/20 07:18 Resp 18 02/26/20 07:18 BP 138/69 02/26/20 07:18 Pulse Ox 95 02/25/20 20:15 Intake & Output 02/25/20 02/26/20 02/26/20 18:59 06:59 18:59 Intake Total 1101.5 600 180 Output Total 11 400 Balance 1090.5 200 180 Weight 131.7 kg Intake: IV 1101.5 400 Oral 200 180 Output: Urine 400 Estimated Blood Loss 11 - Labs CBC & Chem 7: 02/26/20 06:50 02/26/20 06:50 Labs: Abnormal Lab Results - Last 24 Hours (Table) 02/26/20 02/26/20 Range/Units 06:50 06:50 RBC 3.46 L (4.30-5.90) m/uL Hgb 10.4 L (13.0-17.5) gm/dL Hct 32.7 L (39.0-53.0) % Lymphocytes # 0.7 L (1.0-4.8) k/uL Creatinine 1.30 H (0.66-1.25) mg/dL Glucose 122 H (74-99) mg/dL Total Protein 5.7 L (6.3-8.2) g/dL Albumin 3.3 L (3.5-5.0) g/dL Microbiology - Last 24 Hours (Table) 02/25/20 18:20 Gram Stain - Preliminary Hip - Right Wound Culture - Preliminary 02/25/20 18:20 Anaerobic Culture - Preliminary Hip - Right
[2020-02-26] MEDS ORDERED: FENOFIBRATE 160 MG TAB PO SCH (21:00)
[2020-02-26] MEDS ORDERED: LEVOTHYROXINE 25 MCG TAB PO SCH (22:00)
== END 2020-02-26 12:27 | disposition home health service (06) | DRG 902 ==
LOC: 2ORMAIN 15:01 → 4SSUR 18:54
PROVIDERS: ADMIT Orthopaedic Surgery; ATTEND Orthopaedic Surgery
PROC: 0JBL0ZZ Excision of Right Upper Leg Subcutaneous Tissue and Fascia, Open Approach (ICD-10-PCS; principal; 2020-02-25 07:30)
PROC: 0JQL0ZZ Repair Right Upper Leg Subcutaneous Tissue and Fascia, Open Approach (ICD-10-PCS; principal; 2020-02-25 07:30)
DX: T81.32XA Disruption of internal operation (surgical) wound, not elsewhere classified, initial encounter (principal); Z68.41 Body mass index [BMI] 40.0-44.9, adult; E03.9 Hypothyroidism, unspecified; E66.01 Morbid (severe) obesity due to excess calories; G89.29 Other chronic pain; J45.909 Unspecified asthma, uncomplicated; E78.5 Hyperlipidemia, unspecified; I10 Essential (primary) hypertension; G47.33 Obstructive sleep apnea (adult) (pediatric); H93.19 Tinnitus, unspecified ear; H26.9 Unspecified cataract; M10.9 Gout, unspecified; R11.2 Nausea with vomiting, unspecified; H40.9 Unspecified glaucoma; Z79.82 Long term (current) use of aspirin; Z79.890 Hormone replacement therapy; Z79.01 Long term (current) use of anticoagulants; Z79.899 Other long term (current) drug therapy; Z85.46 Personal history of malignant neoplasm of prostate; Z86.718 Personal history of other venous thrombosis and embolism; Z96.643 Presence of artificial hip joint, bilateral; Z92.3 Personal history of irradiation; Z86.19 Personal history of other infectious and parasitic diseases; Z90.89 Acquired absence of other organs; Z98.1 Arthrodesis status; Z96.653 Presence of artificial knee joint, bilateral; Z98.41 Cataract extraction status, right eye; Z90.79 Acquired absence of other genital organ(s); Z88.1 Allergy status to other antibiotic agents; Z88.7 Allergy status to serum and vaccine; Z88.8 Allergy status to other drugs, medicaments and biological substances; Y83.1 Surgical operation with implant of artificial internal device as the cause of abnormal reaction of the patient, or of later complication, without mention of misadventure at the time of the procedure; Z80.2 Family history of malignant neoplasm of other respiratory and intrathoracic organs; Z82.3 Family history of stroke; Z82.49 Family history of ischemic heart disease and other diseases of the circulatory system; Z80.42 Family history of malignant neoplasm of prostate; Z80.8 Family history of malignant neoplasm of other organs or systems; Z80.41 Family history of malignant neoplasm of ovary
CPT/HCPCS: 80053; 85025; 87070; 87075; 87077; 87186; 87205

== ENCOUNTER 2020-04-18 14:11 | Emergency (ER) | payer MEDICARE, OTHER ==
--- NOTE | 2020-04-18 14:48 | XR ---
Limited right hip HISTORY: Dislocation Single frontal view of the right hip Patient is status post right hip arthroplasty, there is a right hip dislocation, femoral component li es cephalad to the acetabular component. Surgical clips are present in the right hemipelvis. No evide nt fracture. IMPRESSION: Right hip dislocation.
[2020-04-18] MEDS ORDERED: SODIUM CHLORIDE 0.9% 500 ML 500 ML IV STA (15:02)
[2020-04-18] MEDS ORDERED: PROPOFOL 10 MG/ML 20 ML VIAL IV STA (15:02)
--- NOTE | 2020-04-18 15:18 | ED ---
Extremity Problem HPI - General Source: patient, EMS, RN notes reviewed Mode of arrival: EMS Limitations: physical limitation <Janusz Meneses - Last Filed: 04/18/20 16:24> <Mayco Alegre - Last Filed: 04/18/20 21:43> - General Chief complaint: Extremity Problem,Nontraumatic Stated complaint: hip dislocation Time Seen by Provider: 04/18/20 14:14 - History of Present Illness Initial comments: 79-year-old male present emergency Department with chief complaint of right hip pain, dislocation. Patient states she was sitting outpatient table straddling the seat when he states he noticed late deciding felt that slight out. Patient had a hip replacement [address] Jeffrey. Patient has no severe pain no paresthesias. He states that he does not want anything for pain at this point. Patient denies any falls. Patient states that one week. He had some wound dehiscence that he had repaired. (Janusz Meneses) - Related Data Home Medications Medication Instructions Recorded Confirmed Allopurinol 100 mg PO DAILY 03/15/14 02/25/20 Losartan/Hydrochlorothiazide 1 tab PO QAM 03/15/14 02/25/20 [Losartan-Hctz 100-25 mg Tab] Vershire-3 Acid Ethyl Esters [Lovaza] 1 gm PO DAILY 03/15/14 02/25/20 Fenofibrate [Lofibra] 160 mg PO HS 04/27/18 02/25/20 Levothyroxine Sodium [Synthroid] 25 mcg PO HS 04/27/18 02/25/20 Acetaminophen [Tylenol] 500 mg PO DAILY PRN 02/05/20 02/25/20 Aspirin 325 mg PO DAILY 02/05/20 02/25/20 Cetirizine HCl 10 mg PO DAILY 02/05/20 02/25/20 Cyanocobalamin [Vitamin B-12] 500 mcg PO DAILY 02/05/20 02/25/20 Ketorolac [Toradol] 10 mg PO TID PRN 02/05/20 02/25/20 Rivaroxaban [Xarelto] 20 mg PO DAILY 02/05/20 02/25/20 Previous Rx's Medication Instructions Recorded Nystatin 100,000 Unit/gm Powd 1 applic TOPICAL BID #40 gm 02/26/20 [Mycostatin Powder] Ondansetron [Zofran] 4 mg PO Q8HR PRN #20 tab 02/26/20 Pantoprazole [Protonix] 40 mg PO AC-BRKFST #30 tablet. 02/26/20 Allergies Allergy/AdvReac Type Severity Reaction Status Date / Time ciprofloxacin [From Cipro] Allergy Unknown Verified 02/11/20 06:24 ciprofloxacin HCl Allergy Unknown Verified 02/11/20 06:24 [From Cipro] Tetanus Vaccines and Toxoid Allergy Swelling Verified 02/11/20 06:24 [Tetanus Vaccines & Toxoid] warfarin sodium Allergy Swelling Verified 02/11/20 06:24 [From Coumadin] Penicillins AdvReac Diarrhea Verified 04/18/20 14:25 Review of Systems ROS Other: All systems not noted in ROS Statement are negative. <Janusz Meneses - Last Filed: 04/18/20 16:24> ROS Other: All systems not noted in ROS Statement are negative. <Mayco Alegre - Last Filed: 04/18/20 21:43> ROS Statement: Those systems with pertinent positive or pertinent negative responses have been documented in the HPI. Past Medical History Past Medical History: Asthma, Cancer, Deep Vein Thrombosis (DVT), Eye Disorder, Hyperlipidemia, Hypertension, Sleep Apnea/CPAP/BIPAP Additional Past Medical History / Comment(s): TINNITUS,GLAUCOMA, HX PROSTATE CA 1996 & 2012 RADIATION [place],USES BIPAP, BLOOD CLOT LT KNEE AFTER HIP SURGERY,GULLIAN BARRE SYNDROME 1996, gout, LT CATARACT History of Any Multi-Drug Resistant Organisms: None Reported Past Surgical History: Adenoidectomy, Back Surgery, Hernia Repair, Joint Replacement, Prostate Surgery, Tonsillectomy Additional Past Surgical History / Comment(s): LEFT HIP REPLACEMENT, BACK FUSION, PROSTATE, RECTAL FISTULA REPAIR X 2,UMBILICAL HERNIA REPAIR,LT KNEE SCOPE, 09-08-15 TOTAL LT KNEE REPLACEMENT, 01-19-16 TOTAL RT KNEE, RT CATARACT REMOVED; right hip replacement Past Anesthesia/Blood Transfusion Reactions: No Reported Reaction, Motion Sickness Additional Past Anesthesia/Blood Transfusion Reaction / Comment(s): Sabianist, CLAUSTROPHOBIA, MOTION SICKESS IF LAYING FLAT ESPECIALLY IF RIDING IN AN AMBULANCE Past Psychological History: No Psychological Hx Reported Smoking Status: Former smoker Past Alcohol Use History: Occasional Past Drug Use History: None Reported - Past Family History Mother Family Medical History: Cancer Additional Family Medical History / Comment(s): Mother at the age of 82 from pleural cancer ?Mesothelioma. Father Family Medical History: Cancer, CVA/TIA, Myocardial Infarction (PR) Additional Family Medical History / Comment(s): HEART PROBLEMS-PACEMAKER. Father at the age of 83 from CVA,PR and had a PPM and history of prostate cancer Brother(s) Family Medical History: Coronary Artery Disease (CAD) Additional Family Medical History / Comment(s): Patient has one brother with CAD. Sister(s) Family Medical History: Cancer Additional Family Medical History / Comment(s): Patient has 2 sisters one with throat cancer and the other one with ovarian cancer.throat cancer Son(s) Family Medical History: Coronary Artery Disease (CAD), Hypertension Additional Family Medical History / Comment(s): Patient has 2 sons one of them with CAD. <Janusz Meneses - Last Filed: 04/18/20 16:24> General Exam Limitations: physical limitation General appearance: alert, in no apparent distress Neck exam: Present: normal inspection. Absent: tenderness, meningismus, lymphadenopathy Respiratory exam: Present: normal lung sounds bilaterally. Absent: respiratory distress, wheezes, rales, rhonchi, stridor Cardiovascular Exam: Present: regular rate, normal rhythm, normal heart sounds. Absent: systolic murmur, diastolic murmur, rubs, gallop, clicks Extremities exam: Present: other (Right leg is shortened, and a flexed position, neurovascular intact mild right hip tenderness) <Janusz Meneses - Last Filed: 04/18/20 16:24> Course <Mayco Alegre - Last Filed: 04/18/20 21:43> Vital Signs 04/18/20 04/18/20 04/18/20 14:23 15:45 15:50 Temperature 97.1 F L Pulse Rate 72 75 73 Respiratory 19 18 16 Rate Blood Pressure 114/82 124/89 128/80 O2 Sat by Pulse 97 100 100 Oximetry 04/18/20 04/18/20 04/18/20 15:55 16:10 16:25 Temperature Pulse Rate 68 64 75 Respiratory 19 17 18 Rate Blood Pressure 122/62 117/58 117/59 O2 Sat by Pulse 100 100 100 Oximetry 04/18/20 16:53 Temperature 98.5 F Pulse Rate 78 Respiratory 17 Rate Blood Pressure 122/74 O2 Sat by Pulse 100 Oximetry - Reevaluation(s) Reevaluation #1: 04/18/20 16:23 PA supervision: I personally evaluate the patient he presented with complaints of right hip pain with suspected dislocation. He had surgery about 6 weeks ago for a total hip replacement. He was sitting when the hip apparently subluxed. He complains localized pain is brought in by EMS. No other injury reported. X- rays do confirm that he does have a subluxed right hip patient did undergo procedural sedation and the hip was reduced and in proper position. After orthopedic consultation patient be discharged home with follow-up. (Mayco Alegre) Procedures - Orthopedic Joint Reduction Joint #1 Consent Obtained: written consent Side: right Joint Reduction Location: hip Analgesia: procedural sedation Technique Used: traction/counter-traction Post-Reduction Neuro Exam: intact Post-Reduction Vascular Exam: intact Post Reduction X-Ray Obtained: Yes Post Reduction X-Ray Results: reduced Splint Applied: Yes Patient Tolerated Procedure: well, no complications <Janusz Meneses - Last Filed: 04/18/20 16:24> - Mentor Protocol (Time Out) Procedure Performed:: Closed reduction of right hip subluxation Performing Provider: Janusz Meneses Timeout Date: 04/18/20 Timeout Time: 15:45 Patient Identification (2 identifiers required): Chart, Verbal, Arm Band Site Marked: Yes Site Verified With Patient/Guardian: Yes Final Confirmation: Radiographs - Procedural Sedation Procedural Sedation Start Time: 15:47 Procedural Sedation Stop Time: 16:10 Indications: fracture/dislocation reduction ASA Class: III Mallampati Airway Score: 2 Time of Last PO Intake: 08:00 IV Propofol Dose (mgs): 150 Complications: none Patient Tolerated Procedure: well (Patient did require reduction of the post prosthetic hip subluxation. He was adequately sedated and the procedure was successful. Patient tolerated it well without problems. Post reduction x-ray shows good position.) <Mayco Alegre - Last Filed: 04/18/20 21:43> Medical Decision Making <Janusz Meneses - Last Filed: 04/18/20 16:24> - Medical Decision Making 79-year-old male present emergency from for right hip dislocation. Case discussed with his orthopedic PA priscilla sommer. Advised limited to be reduced and contact if any complications. Hip was reduced with no comp patients. Patient advised to take it easy over the weekend he is to call Tuesday morning for follow-up appointment and to return return for any worsening or changing symptoms. (Janusz Meneses) Disposition Is patient prescribed a controlled substance at d/c from ED?: No Time of Disposition: 16:26 <Janusz Meneses - Last Filed: 04/18/20 16:24> <Mayco Alegre - Last Filed: 04/18/20 21:43> Clinical Impression: Dislocation of hip, right, closed Disposition: HOME SELF-CARE Condition: Stable Instructions (If sedation given, give patient instructions): Moderate Sedation (ED), Hip Dislocation (ED) Additional Instructions: No strenuous activity until seen by orthopedic physician.Please return to the Emergency Department if symptoms worsen or any other concerns. Referrals: Codey Simons DO [Primary Care Provider] - 1-2 days Abdulaziz Jeffrey DO [Family Provider] - 1-2 days
--- NOTE | 2020-04-18 16:05 | XR ---
Limited right hip HISTORY: Post reduction Single frontal view of the right hip correlated to prior right hip same dated earlier time There is been interval reduction. Impression: Interval reduction right hip dislocation
[2020-04-18 16:55] VITALS: BP 122/74; PULSE 78; RESP 17; TEMP 98.5
== END 2020-04-18 16:55 | disposition home or self-care (01) ==
LOC: EC 14:11
DX: S73.004A Unspecified dislocation of right hip, initial encounter (principal); I10 Essential (primary) hypertension; G47.30 Sleep apnea, unspecified; M10.9 Gout, unspecified; E78.5 Hyperlipidemia, unspecified; Z79.890 Hormone replacement therapy; Z79.899 Other long term (current) drug therapy; Z79.82 Long term (current) use of aspirin; Z79.01 Long term (current) use of anticoagulants; Z88.1 Allergy status to other antibiotic agents; Z88.0 Allergy status to penicillin; Z88.7 Allergy status to serum and vaccine; Z88.8 Allergy status to other drugs, medicaments and biological substances; Z96.643 Presence of artificial hip joint, bilateral; Z96.652 Presence of left artificial knee joint; Z87.891 Personal history of nicotine dependence; Z99.89 Dependence on other enabling machines and devices; Z86.718 Personal history of other venous thrombosis and embolism; Z85.46 Personal history of malignant neoplasm of prostate; X50.1XXA Overexertion from prolonged static or awkward postures, initial encounter
CPT/HCPCS: 73501; 99283; 96374; 96361; 27250; 99152; 99153; J2704

== ENCOUNTER 2020-04-30 17:24 | Observation (INO) | payer MEDICARE, OTHER ==
--- NOTE | 2020-04-30 18:03 | ED ---
Lower Extremity Injury HPI - General Source: patient, EMS Mode of arrival: EMS Limitations: no limitations <Karyna Mendoza - Last Filed: 04/30/20 19:57> <Kyle Rod - Last Filed: 04/30/20 20:04> - General Chief Complaint: Extremity Injury, Lower Stated Complaint: right hip dislocation Time Seen by Provider: 04/30/20 17:33 - History of Present Illness Initial Comments: Patient is a 80-year-old male presenting to the emergency Department as a transfer from [facility] for a right hip dislocation. Patient states he was getting out of his vehicle when he felt a pop in his right hip. Patient had his hip replaced in February and this is his second dislocation in the past 2 weeks. His orthopedic surgeon is Dr. Jeffrey. Patient did receive pain medicine prior to arrival and is currently about a 10. He denies any other complaints at this time. He states he does have history of left hip and bilateral knee replacements as well. The ER his vitals are stable. (Karyna Mendoza) - Related Data Home Medications Medication Instructions Recorded Confirmed Allopurinol 100 mg PO DAILY 03/15/14 04/30/20 Losartan/Hydrochlorothiazide 1 tab PO DAILY 03/15/14 04/30/20 [Losartan-Hctz 100-25 mg Tab] Fenofibrate [Lofibra] 160 mg PO HS 04/27/18 04/30/20 Levothyroxine Sodium [Synthroid] 25 mcg PO DAILY 04/27/18 04/30/20 Acetaminophen [Tylenol] 1,000 mg PO HS 02/05/20 04/30/20 Aspirin 325 mg PO HS 02/05/20 04/30/20 Cyanocobalamin [Vitamin B-12] 500 mcg PO HS 02/05/20 04/30/20 Rivaroxaban [Xarelto] 20 mg PO DAILY 02/05/20 04/30/20 Escitalopram [Lexapro] 10 mg PO DAILY 04/30/20 04/30/20 Eastman Plus 1 cap PO HS 04/30/20 04/30/20 Vortioxetine Hydrobromide 10 mg PO DAILY 04/30/20 04/30/20 [Trintellix] Allergies Allergy/AdvReac Type Severity Reaction Status Date / Time ciprofloxacin [From Cipro] Allergy Unknown Verified 04/30/20 19:43 ciprofloxacin HCl Allergy Unknown Verified 04/30/20 19:43 [From Cipro] Tetanus Vaccines and Toxoid Allergy Swelling Verified 04/30/20 19:43 [Tetanus Vaccines & Toxoid] warfarin sodium Allergy Swelling Verified 04/30/20 19:43 [From Coumadin] Penicillins AdvReac Diarrhea Verified 04/30/20 19:43 Review of Systems ROS Other: All systems not noted in ROS Statement are negative. <Karyna Mendoza - Last Filed: 04/30/20 19:57> ROS Other: All systems not noted in ROS Statement are negative. <Kyle Rod - Last Filed: 04/30/20 20:04> ROS Statement: Those systems with pertinent positive or pertinent negative responses have been documented in the HPI. Past Medical History Past Medical History: Asthma, Cancer, Deep Vein Thrombosis (DVT), Eye Disorder, Hyperlipidemia, Hypertension, Sleep Apnea/CPAP/BIPAP Additional Past Medical History / Comment(s): TINNITUS,GLAUCOMA, HX PROSTATE CA 1996 & 2012 RADIATION [place],USES BIPAP, BLOOD CLOT LT KNEE AFTER HIP SURGERY,GULLIAN BARRE SYNDROME 1996, gout, LT CATARACT History of Any Multi-Drug Resistant Organisms: None Reported Past Surgical History: Adenoidectomy, Back Surgery, Hernia Repair, Joint Replacement, Prostate Surgery, Tonsillectomy Additional Past Surgical History / Comment(s): LEFT HIP REPLACEMENT, BACK FUSION, PROSTATE, RECTAL FISTULA REPAIR X 2,UMBILICAL HERNIA REPAIR,LT KNEE SCOPE, 216 TOTAL LT KNEE REPLACEMENT, 16 TOTAL RT KNEE, RT CATARACT REMOVED; right hip replacement Past Anesthesia/Blood Transfusion Reactions: No Reported Reaction, Motion Sickness Additional Past Anesthesia/Blood Transfusion Reaction / Comment(s): Catholic, CLAUSTROPHOBIA, MOTION SICKESS IF LAYING FLAT ESPECIALLY IF RIDING IN AN AMBULANCE Past Psychological History: No Psychological Hx Reported Smoking Status: Former smoker Past Alcohol Use History: Occasional Past Drug Use History: None Reported - Past Family History Mother Family Medical History: Cancer Additional Family Medical History / Comment(s): Mother at the age of 82 from pleural cancer ?Mesothelioma. Father Family Medical History: Cancer, CVA/TIA, Myocardial Infarction (MD) Additional Family Medical History / Comment(s): HEART PROBLEMS-PACEMAKER. Father at the age of 83 from CVA,MD and had a PPM and history of prostate cancer Brother(s) Family Medical History: Coronary Artery Disease (CAD) Additional Family Medical History / Comment(s): Patient has one brother with CAD. Sister(s) Family Medical History: Cancer Additional Family Medical History / Comment(s): Patient has 2 sisters one with throat cancer and the other one with ovarian cancer.throat cancer Son(s) Family Medical History: Coronary Artery Disease (CAD), Hypertension Additional Family Medical History / Comment(s): Patient has 2 sons one of them with CAD. <Karyna Mendoza - Last Filed: 04/30/20 19:57> General Exam Limitations: no limitations <Karyna Mendoza - Last Filed: 04/30/20 19:57> - General Exam Comments Initial Comments: GENERAL: Patient is well-developed and well-nourished. Patient is nontoxic and in no acute distress. HEAD: Atraumatic, normocephalic. EYES: Pupils equal round and reactive to light, extraocular movements intact, sclera anicteric, conjunctiva are normal. Eyelids were unremarkable. ENT: TMs normal, nares patent, oropharynx clear without exudates. Moist mucous membranes. NECK: Normal range of motion, supple without lymphadenopathy or JVD. LUNGS: Unlabored respirations. Breath sounds clear to auscultation bilaterally and equal. No wheezes rales or rhonchi. HEART: Regular rate and rhythm without murmurs, rubs or gallops. ABDOMEN: Soft, nontender, normoactive bowel sounds. No guarding, no rebound. No masses appreciated. : Deferred MUSCULOSKELETAL: Patient has pain with palpation of the right lateral hip, is shortened and externally rotated he is neurovascular intact. No clubbing or cyanosis. NEUROLOGICAL: Patient is alert and oriented x 3. Motor and sensory are also intact. Cranial nerves II through XII grossly intact. Symmetrical smile. Normal speech. PSYCH: Normal mood, normal affect. SKIN: Warm, Dry, normal turgor, no rashes or lesions noted. (Karyna Mendoza) Course Vital Signs 04/30/20 04/30/20 04/30/20 17:30 18:36 19:40 Temperature 98 F Pulse Rate 73 77 77 Respiratory 20 18 18 Rate Blood Pressure 135/84 149/85 128/56 O2 Sat by Pulse 97 98 99 Oximetry Procedures - Procedural Sedation Procedural Sedation Start Time: 19:40 Procedural Sedation Stop Time: 20:02 Indications: fracture/dislocation reduction ASA Class: III Mallampati Airway Score: 2 Preparation: patient monitor applied, pulse oximeter, capnometry used, supplemental O2 applied IV Propofol Dose (mgs): 100 Complications: none Patient Tolerated Procedure: well, no complications <Kyle Rod - Last Filed: 04/30/20 20:04> Medical Decision Making <Kyle Rod - Last Filed: 04/30/20 20:04> - Medical Decision Making Patient was evaluated by myself, Dr. Rod. Patient chart reviewed. Patient does have posterior. Hip dislocation. Case was discussed with Dr. Rodriguez son who does request reduction in the emergency department. This was done without difficulty. Case was again discussed with Dr. Feliciano who will admit and does request hip abductor pillow or brace. (Kyle Rod) Disposition Decision Date: 04/30/20 Decision Time: 19:57 <Karyna Mendoza - Last Filed: 04/30/20 19:57> <Kyle Rod - Last Filed: 04/30/20 20:04> Clinical Impression: Recurrent dislocation, right hip Disposition: ADMITTED IP TO THIS [facility] Condition: Stable Referrals: Codey Simons DO [Primary Care Provider] - 1-2 days
[2020-04-30] MEDS ORDERED: PROPOFOL 10 MG/ML 20 ML VIAL IV ONE (19:12)
[2020-04-30] MEDS ORDERED: ACETAMINOPHEN TAB 325 MG TAB PO PRN (19:54)
[2020-04-30] MEDS ORDERED: ONDANSETRON 4 MG/2 ML VIAL IVP PRN (19:54)
[2020-04-30] MEDS ORDERED: NALOXONE 0.4 MG/ML 1 ML VIAL IV PRN (19:54)
--- NOTE | 2020-04-30 20:58 | XR ---
EXAMINATION TYPE: XR Hip Limited RT DATE OF EXAM: 04/30/2020 COMPARISON: 04/18/2020 HISTORY: Post reduction TECHNIQUE: Right hip is examined in single AP view FINDINGS: Femoral head of the articulate with the acetabulum. No acute fractures are evident. Multiple surgical clips are within the pelvis. IMPRESSION: 1. Appears to be reduction of the previous dislocated femoral head component from the acetabulum and prominent.
--- NOTE | 2020-04-30 23:07 | P.PN ---
Progress Note - Text Progress Note Date: 04/30/20 Pt s/e in ED. Films reviewed. S/P closed reduction of [place] by ED provider. Reduction appears congruent. No fractures noted. Pt is doing well in his room. He lives 2 hrs away alone, so he will be admitted to obs and will likely DC home tomorrow AM. We will get him PT with a walker for here to road test him before he dc tomorrow. He was agreeable to this. 14 points review of systems completed and as stated in HPI or otherwise negative. Patient's past medical, surgical, medications, ALLERGIES, and social history are all reviewed and stated elsewhere within the chart. LL are equal b/l SILT L2-S1 +DP/PT pulses palpable Incision is CDI and well healed. 5/5 df/pf/ehl/fhl/SLR b/l LE A: 1. R periprosthetic hip dislocation, 2nd time 2. S/P closed reduction by ED providers P: Admit to obs Will see again in AM Road test with PT and walker IF able to to ambulate and perform ADLs will dc home.
[2020-05-01] MEDS ORDERED: FENOFIBRATE 160 MG TAB PO SCH (01:25)
[2020-05-01] MEDS ORDERED: RIVAROXABAN 20 MG TAB PO SCH (01:26)
[2020-05-01] MEDS ORDERED: LEVOTHYROXINE 25 MCG TAB PO SCH (06:30)
--- NOTE | 2020-05-01 08:38 | P.HPOR ---
History of Present Illness H&P Date: 05/01/20 Chief Complaint: I dislocated my right hip 80-year-old male presented to the emergency department after trying to get out of his car and feeling a pop in his right hip. The patient has a history of a right total hip arthroplasty done by Dr. Jeffrey in February 2020. The patient has since dislocated his hip once. He states he was getting out of his car and felt the same pop and new that he had dislocated his hip arrived to the emergency department via EMS. The emergency room physician was able to reduce the hip under conscious sedation. The patient was kept for observation due to him living far away and being alone and having undergone conscious sedation. He states this morning that he feels very well. His hip does not hurt. He is able to walk under his own power to the bathroom with a walker. He denies any fevers, chills shortness of breath or chest pain at this time. 14 points review of systems completed and as stated in HPI or otherwise negative. Past Medical History Past Medical History: Asthma, Cancer, Deep Vein Thrombosis (DVT), Eye Disorder, Hyperlipidemia, Hypertension, Sleep Apnea/CPAP/BIPAP Additional Past Medical History / Comment(s): TINNITUS, BILATERAL GLAUCOMA, HX PROSTATE CA 1996 & 2012 RADIATION [place],USES BIPAP, BLOOD CLOT LT KNEE AFTER HIP SURGERY,GULLIAN BARRE SYNDROME 1996, gout, MAKAYLA CATARACT SURGERY History of Any Multi-Drug Resistant Organisms: None Reported Past Surgical History: Adenoidectomy, Back Surgery, Hernia Repair, Joint Replacement, Prostate Surgery, Tonsillectomy Additional Past Surgical History / Comment(s): LEFT HIP REPLACEMENT, BACK FUSION, PROSTATE, RECTAL FISTULA REPAIR X 2,UMBILICAL HERNIA REPAIR,LT KNEE SCOPE, 09-08-15 TOTAL LT KNEE REPLACEMENT, 01-19-16 TOTAL RT KNEE, RT CATARACT REMOVED; right hip replacement, STEEL/SCREWS IN LOWER BACK Past Anesthesia/Blood Transfusion Reactions: No Reported Reaction, Motion Sickness Additional Past Anesthesia/Blood Transfusion Reaction / Comment(s): Latter day, CLAUSTROPHOBIA, MOTION SICKESS IF LAYING FLAT ESPECIALLY IF RIDING IN AN AMBULANCE Past Psychological History: No Psychological Hx Reported Additional Psychological History / Comment(s): 2 years ago. denies any symptoms of depression currently 05/01/20 0019. Smoking Status: Former smoker Past Alcohol Use History: Occasional Additional Past Alcohol Use History / Comment(s): QUIT SMOKING 1989, SMOKED APPROX 30 YEARS ON AND OFF ABOUT PACK PER WEEK. Past Drug Use History: None Reported - Past Family History Mother Family Medical History: Cancer Additional Family Medical History / Comment(s): Mother at the age of 82 fr om pleural cancer ?Mesothelioma. Father Family Medical History: Cancer, CVA/TIA, Myocardial Infarction (OK) Additional Family Medical History / Comment(s): HEART PROBLEMS-PACEMAKER. Father at the age of 83 from CVA,[place] and had a PPM and history of prostate cancer Brother(s) Family Medical History: Coronary Artery Disease (CAD) Additional Family Medical History / Comment(s): Patient has one brother with CAD. Sister(s) Family Medical History: Cancer Additional Family Medical History / Comment(s): Patient has 2 sisters one with throat cancer and the other one with ovarian cancer.throat cancer Son(s) Family Medical History: Coronary Artery Disease (CAD), Hypertension Additional Family Medical History / Comment(s): Patient has 2 sons one of them with CAD. Medications and Allergies Home Medications Medication Instructions Recorded Confirmed Type Allopurinol 100 mg PO DAILY 03/15/14 04/30/20 History Losartan/Hydrochlorothiazide 1 tab PO DAILY 03/15/14 04/30/20 History [Losartan-Hctz 100-25 mg Tab] Fenofibrate [Lofibra] 160 mg PO HS 04/27/18 04/30/20 History Levothyroxine Sodium [Synthroid] 25 mcg PO DAILY 04/27/18 04/30/20 History Acetaminophen [Tylenol] 1,000 mg PO HS 02/05/20 04/30/20 History Aspirin 325 mg PO HS 02/05/20 04/30/20 History Cyanocobalamin [Vitamin B-12] 500 mcg PO HS 02/05/20 04/30/20 History Rivaroxaban [Xarelto] 20 mg PO DAILY 02/05/20 04/30/20 History Escitalopram [Lexapro] 10 mg PO DAILY 04/30/20 04/30/20 History [place] Plus 1 cap PO HS 04/30/20 04/30/20 History Vortioxetine Hydrobromide 10 mg PO DAILY 04/30/20 04/30/20 History [Trintellix] Allergies Allergy/AdvReac Type Severity Reaction Status Date / Time ciprofloxacin [From Cipro] Allergy Unknown Verified 04/30/20 19:43 ciprofloxacin HCl Allergy Unknown Verified 04/30/20 19:43 [From Cipro] Tetanus Vaccines and Toxoid Allergy Swelling Verified 04/30/20 19:43 [Tetanus Vaccines & Toxoid] warfarin sodium Allergy Swelling Verified 04/30/20 19:43 [From Coumadin] Penicillins AdvReac Diarrhea Verified 04/30/20 19:43 Physical Examination Osteopathic Statement: *. No significant issues noted on an osteopathic structural exam other than those noted in the History and Physical/Consult. 5 out of 5 strength in hip flexion, knee flexion and extension, dorsiflexion, plantar flexion, EHL and FHL bilaterally 5 out of 5 strength in all major muscle groups of the upper extremities bilaterally No pain with logroll of bilateral hips No pain with palpation around hips Positive dorsalis pedis as well as posterior tibial pulses palpable Sensation intact to light touch and pinprick in the L2 S1 nerve distribution Normal respiratory rate no distress Incision is clean, dry and intact, no erythema, ecchymosis or edema surrounding the right anterior total hip incision Results Prereduction and postreduction films of the right hip are obtained and reviewed in the emergency department. These demonstrate a concentric reduction of the right periprosthetic hip dislocation. There are no fractures around the stem or the cup. There is no loosening of the components. Components appear well placed and in good position. Assessment and Plan Assessment: 80-year-old male, right periprosthetic hip dislocation, status post conscious sedation and closed reduction Plan: 1. Aggressive ambulation protocol, PT to evaluate patient 2. Pain control 3. Hip precautions 4. Discuss case with Dr. Jeffrey who is in agreement no surgery at this stay 5. Follow-up with [facility] in 2 weeks Time with Patient: Greater than 30
--- NOTE | 2020-05-01 08:44 | P.DS ---
Providers Date of admission: 04/30/20 20:04 Expected date of discharge: 05/01/20 Attending physician: Manoj Weldon DO Consults: Physical Therapy Primary care physician: [facility] Course: Patient presents emergency department with a right periprosthetic hip dislocation. This was probably diagnosed by the ED physician. X-rays obtained. There are no fractures noted. The patient underwent conscious sedation and reviewed. Closed reduction in the emergency department for periprosthetic hip dislocation. Postreduction radiographs demonstrated concentric reduction with no fractures noted. Assessment: Stable for home status post closed reduction with conscious sedation, a right periprosthetic hip dislocation Procedures: Conscious sedation performed in the emergency department by the ED provider for right periprosthetic hip dislocation. Closed reduction Patient Condition at Discharge: Good Plan - Discharge Summary Discharge Rx Participant: No New Discharge Prescriptions: No Action Losartan/Hydrochlorothiazide [Losartan-Hctz 100-25 mg Tab] 1 tab PO DAILY Allopurinol 100 mg PO DAILY Levothyroxine Sodium [Synthroid] 25 mcg PO DAILY Fenofibrate [Lofibra] 160 mg PO HS Rivaroxaban [Xarelto] 20 mg PO DAILY Acetaminophen [Tylenol] 1,000 mg PO HS Cyanocobalamin [Vitamin B-12] 500 mcg PO HS Aspirin 325 mg PO HS Vortioxetine Hydrobromide [Trintellix] 10 mg PO DAILY Escitalopram [Lexapro] 10 mg PO DAILY [place] Plus 1 cap PO HS Discharge Medication List Allopurinol 100 mg PO DAILY 03/15/14 [History] Losartan/Hydrochlorothiazide [Losartan-Hctz 100-25 mg Tab] 1 tab PO DAILY 03/15/14 [History] Fenofibrate [Lofibra] 160 mg PO HS 04/27/18 [History] Levothyroxine Sodium [Synthroid] 25 mcg PO DAILY 04/27/18 [History] Acetaminophen [Tylenol] 1,000 mg PO HS 02/05/20 [History] Aspirin 325 mg PO HS 02/05/20 [History] Cyanocobalamin [Vitamin B-12] 500 mcg PO HS 02/05/20 [History] Rivaroxaban [Xarelto] 20 mg PO DAILY 02/05/20 [History] Escitalopram [Lexapro] 10 mg PO DAILY 04/30/20 [History] [place] Plus 1 cap PO HS 09/23/20 [History] Vortioxetine Hydrobromide [Trintellix] 10 mg PO DAILY 04/30/20 [History] Follow up Appointment(s)/Referral(s): Codey Simons DO [Primary Care Provider] - 1-2 days Abdulaziz Jeffrey DO [Doctor of Osteopathic Medicine] - 2 Weeks Patient Instructions/Handouts: Total Hip Replacement (DC) Activity/Diet/Wound Care/Special Instructions: Avoid external rotation of the right hip with extension. Use walker for ambulation Take medications as prescribed, and home medications as normal, no changes Follow-up with Dr. Aleena Cordova in 2 weeks, call office to make appointment at [phone] Discharge Disposition: HOME SELF-CARE
[2020-05-01] MEDS ORDERED: VORTIOXETINE HYDROBROMIDE 10 MG TABLET PO SCH (09:00)
[2020-05-01] MEDS ORDERED: ESCITALOPRAM 10 MG TAB PO SCH (09:00)
[2020-05-01] MEDS ORDERED: LOSARTAN-HCTZ 50-12.5 MG 1 EACH TAB PO SCH (09:00)
[2020-05-01] MEDS ORDERED: allopurinoL 100 MG TAB PO SCH (09:00)
[2020-05-01 09:37] VITALS: BP 123/59; PULSE 73; RESP 17; TEMP 98.2
[2020-05-01] MEDS ORDERED: CYANOCOBALAMIN 500 MCG TAB PO SCH (21:00)
== END 2020-05-01 12:35 | disposition home or self-care (01) ==
LOC: EC 17:24 → 4SSUR 20:04 → 6NMEDSUR 21:42 → 1SOBS 23:31
PROVIDERS: ADMIT Orthopaedic Surgery; ATTEND Orthopaedic Surgery
DX: T84.020A Dislocation of internal right hip prosthesis, initial encounter (principal); E78.5 Hyperlipidemia, unspecified; F40.240 Claustrophobia; I10 Essential (primary) hypertension; J45.909 Unspecified asthma, uncomplicated; Y79.2 Prosthetic and other implants, materials and accessory orthopedic devices associated with adverse incidents; Z79.01 Long term (current) use of anticoagulants; Z79.82 Long term (current) use of aspirin; Z79.890 Hormone replacement therapy; Z79.899 Other long term (current) drug therapy; Z80.2 Family history of malignant neoplasm of other respiratory and intrathoracic organs; Z80.8 Family history of malignant neoplasm of other organs or systems; Z82.3 Family history of stroke; Z82.49 Family history of ischemic heart disease and other diseases of the circulatory system; Z87.891 Personal history of nicotine dependence; Z96.643 Presence of artificial hip joint, bilateral; Z96.653 Presence of artificial knee joint, bilateral; Z98.1 Arthrodesis status; Z85.46 Personal history of malignant neoplasm of prostate
CPT/HCPCS: 96374; 99284; 51702; 27265; 97161; 97165; 73501; G0378 ×3; J2704

== ENCOUNTER → 2022-09-08 | Outpatient (CLI) | payer MEDICARE, OTHER ==
--- NOTE | 2022-09-08 10:06 | CT ---
EXAMINATION TYPE: CT lumbar spine wo con, CT thoracic spine wo con, CT cervical spine wo con CT DLP: 2422.5 (accession [id number]), 2489.4 (accession [id number]), 757 (accession [id number]) mGycm, Aut omated exposure control for dose reduction was used. DATE OF EXAM: 09/08/2022 9:29 AM COMPARISON: Chest CT 05/27/2016, 02/21/2018, CT neck 05/04/2011. CLINICAL INDICATION:Male, 82 years old with history of M54.9; back pain TECHNIQUE: Multiple axial images were obtained of the cervical, thoracic and lumbar spine. Soft tis giancarlo and bone windows in coronal and sagittal planes were obtained and reviewed. Contrast used: none. Oral contrast used: none. FINDINGS: Alignment: There are 5 lumbar type vertebral bodies within normal alignment. Bone: Facet joint uncovertebral joint are seen throughout the cervical spine. There is disc degenera tion changes with osteophyte and disc space narrowing present throughout the spine. Lower lumbar spin e facet joint arthropathy is also present. There is surgical changes to L2-L5 with hardware in place and intact. Hardware limits evaluation at these levels. Cervical alignment is within normal limits. Moderate left C3-C4, C4-C5, and C5-C6 neural foraminal st enosis. The rest of the neural foramen are grossly patent. No evidence of significant spinal canal st enosis. Disc osteophyte complex at C3-C4 with moderate and C5-C6 with at least mild spinal canal sten osis. No evidence of fracture of the cervical spine. The thoracic spine demonstrates normal alignment. There is multilevel disc degeneration changes again present with osteophyte formation and disc space narrowing. T6-T7 bilateral left mild neural foramin al stenosis. The remainder of the neural foramen are patent. No evidence for significant spinal canal stenosis. No evidence of fracture. The lumbar spine demonstrates fixation hardware from L2 to L5 which appears intact. Vertebral body he ights are maintained. There is disc degeneration changes with osteophyte formation, disc space narrow ing and vacuum disc phenomenon. There is neural foraminal stenosis worse at L1-L2 with moderate bilat eral, L2-L3 with moderate to severe bilateral, and mild to moderate bilateral L5-S1. The spinal canal appears patent throughout the lumbar spine. Other: None IMPRESSION: 1. No evidence of fracture of the spine. 2. C3-C4 moderate spinal canal stenosis. 3. Moderate left C4-C5 and C5-C6 neural foraminal stenosis. 4. T6-T7 bilateral mild neural foraminal stenosis. 5. L2-L3 moderate to severe and L1-L2 moderate neural foraminal stenosis bilaterally. 6. Postsurgical changes spine with hardware in appropriate position and intact.
== END | disposition home or self-care (01) ==
LOC: RADCTMAIN 08:08
PROVIDERS: ATTEND Family Medicine
DX: M48.02 Spinal stenosis, cervical region (principal); M99.71 Connective tissue and disc stenosis of intervertebral foramina of cervical region; M99.72 Connective tissue and disc stenosis of intervertebral foramina of thoracic region; M99.73 Connective tissue and disc stenosis of intervertebral foramina of lumbar region; Z98.890 Other specified postprocedural states
CPT/HCPCS: 72125; 72128; 72131